=== PATIENT | female | born 1960 | race Caucasian/White ===

== ENCOUNTER 2021-04-10 07:30 | Emergency (ER) | payer OTHER, SELFPAY ==
[2021-04-10 08:08] VITALS: BP 160/93; PULSE 84; RESP 20; TEMP 36.6; O2SAT 100; BMI 28.3
[2021-04-10 08:25] LABS: MANUAL DIFF FLAG NO
[2021-04-10 08:26] LABS: Basophils Absolute Auto 0.1 X10*3/uL (0.0-0.2); Basophils Percent Auto 0.6 % (0-2); Eosinophils Percent Auto 0.2 % (0-4); Hematocrit 44.5 % (37.0-47.0); Hemoglobin 15.9 g/dl (12.0-16.0); Imm Gran Abs Auto 0.02 X10*3/uL (0.00-0.03); Imm Gran Pct Auto 0.2 % (0.0-0.4); Lymphocytes Absolute Auto 2.5 X10*3/uL (1.2-4.9); Lymphocytes Percent Auto 27.7 % (20-40); Mean Corpuscular HGB Conc 35.7 g/dl (31.0-35.0); Mean Corpuscular Hemoglobin 31.9 pg (27.0-33.0); Mean Corpuscular Volume 89.2 fL (80.0-98.0); Mean Platelet Volume 9.5 fL (9.4-12.3); Monocytes Absolute Auto 0.5 X10*3/uL (0.1-1.2); Monocytes Percent Auto 5.9 % (2-11); Neutrophils Absolute Auto 5.9 x10*3/uL (2.0-8.3); Neutrophils Percent Auto 65.4 % (45-73); Platelet Count 332 X10*3/uL (160-400); Red Blood Count 4.99 X10*6/uL (4.20-5.50)
[2021-04-10] MEDS: ondansetron HCL 4 MG/2 ML VIAL IVPUSH (08:28)
[2021-04-10 08:58] LABS: Alanine Aminotransferase 26 U/L (0-31); Albumin Level 5.1 g/dL (3.5-5.0); Alkaline Phosphatase 46 U/L (39-117); Anion Gap 17 (12-20); Aspartate Amino Transferase 16 U/L (5-31); Bilirubin Total 0.7 mg/dL (0.0-1.0); Blood Urea Nitrogen 15 mg/dL (9-16); Carbon Dioxide 24 mmol/L (22-29); Chloride 105 mmol/L (96-108); Creatinine Clr Calc Pharmacy 71.3; Estimated Glomerular Filt Rate > 60; Glucose Random 116 mg/dL (60-115); Potassium 3.5 mmol/L (3.3-5.1); Sodium 142 mmol/L (135-145); Total Protein 8.1 g/dL (6.5-8.0)
[2021-04-10 09:07] LABS: Calcium 10.9 mg/dL (8.4-10.2)
[2021-04-10] MEDS: 0.9 % Sodium Chloride 1,000 ML 999 ML IVCONT (09:18)
[2021-04-10 09:29] LABS: COVID-19 Test Negative (Negative)
--- NOTE | 2021-04-10 09:56 | ED.NAVMDI ---
HPI - Nausea/Vomiting/Diarrhea General Chief complaint: Nausea/Vomiting/Diarrhea Stated complaint: dehydration Time Seen by Provider: 04/10/21 08:50 History of Present Illness HPI Narrative: Patient complains of nausea and vomiting last night last episode of vomiting was this morning but she still feels mildly nauseous and she has had some watery stools last night, no abdominal pain no dizziness no headache no neck pain no chest pain She also feels pressure and mild pain in her right ear Related Data Allergies Allergy/AdvReac Type Severity Reaction Status Date / Time amoxicillin [AMOXICILLIN] Allergy Unknown RASH Verified 04/10/21 08:05 penicillin V Allergy Unknown Rash Verified 04/10/21 08:05 Penicillins [PENICILLINS] Allergy Unknown RASH Verified 04/10/21 08:05 pravastatin Allergy Unknown Rash Verified 04/10/21 08:05 Sulfa (Sulfonamide Allergy Unknown RASH Verified 04/10/21 08:05 Antibiotics) [SULFA(SULFONAMIDE ANTIBIOTICS)] Penicillin Allergy Unknown hives Uncoded 04/10/21 08:05 Sulfa Allergy Unknown hives Uncoded 04/10/21 08:05 Review of Systems Review of Systems: Positive for nausea vomiting diarrhea and right ear discomfort Negatives are no fever no chills no dizziness no weakness no fainting no feeling faint no headache no neck pain no stiff neck no sore throat no cough no sputum no shortness of breath no chest pain no abdominal pain no dysuria no skin rash no numbness or weakness Yes all other systems are reviewed and are negative [facility] Past Medical History Source: nursing notes reviewed Social History Social History Advance Directives: No Advance Directives Information Provided: No Patient : No Physical Exam Vital Signs: Vital Signs: Last Vital Signs Temp 97.8 F 04/10/21 08:08 Pulse 84 04/10/21 08:08 Resp 20 04/10/21 08:08 BP 160/93 H 04/10/21 08:08 Pulse Ox 100 04/10/21 08:08 BMI result Body Mass Index 28.3 General appearance no acute distress The ears are clear with no redness, tympanic membranes were normal no canal narrowing The eyes no redness or discharge The throat is clear with no redness swelling or exudate, mucous membranes are mildly dry and lips are mildly dry Chest is clear to auscultation bilateral Heart no murmur Abdomen soft nontender Extremities no edema Skin no rash Neuro patient's A&O x3, it interaction both comprehension and expression are normal and gait and balance are normal Course Course Course Narrative: After Zofran patient felt better and was tolerating p.o. without nausea Labs showed calcium 10.9 and albumin 5.1 which is likely due to dehydration, patient was hydrated with a L of fluids and on discharge felt very improved and was well-appearing MDM - Nausea/Vomiting/Diarrhea Lab Data Attestation: I reviewed the patient's lab results. Result diagrams: 04/10/21 08:21 04/10/21 08:21 Labs: Lab Results 04/10/21 04/10/21 04/10/21 Range/Units 08:21 08:21 08:57 WBC 9.0 (4.8-10.8) X10*3/uL RBC 4.99 (4.20-5.50) X10*6/uL Hgb 15.9 (12.0-16.0) g/dl Hct 44.5 (37.0-47.0) % MCV 89.2 (80.0-98.0) fL MCH 31.9 (27.0-33.0) pg MCHC 35.7 H (31.0-35.0) g/dl RDW 12.0 (11.0-16.0) % Plt Count 332 (160-400) X10*3/uL MPV 9.5 (9.4-12.3) fL Immature Gran % (Auto) 0.2 (0.0-0.4) % Neut % (Auto) 65.4 (45-73) % Lymph % (Auto) 27.7 (20-40) % [place] % (Auto) 5.9 (2-11) % Eos % (Auto) 0.2 (0-4) % Baso % (Auto) 0.6 (0-2) % Lymph # (Auto) 2.5 (1.2-4.9) X10*3/uL [place] # (Auto) 0.5 (0.1-1.2) X10*3/uL Eos # (Auto) 0.0 (0.0-0.4) X10*3/uL Baso # (Auto) 0.1 (0.0-0.2) X10*3/uL Abs Immat Gran (auto) 0.02 (0.00-0.03) X10*3/uL Absolute Neuts (auto) 5.9 (2.0-8.3) x10*3/uL Absolute Nucleated RBC 0.000 (0.0-0.012) X10*3/uL Nucleated RBC % (auto) 0.0 (0.0-0.2) /100WBC Sodium 142 (135-145) mmol/L Potassium 3.5 (3.3-5.1) mmol/L Chloride 105 (96-108) mmol/L Carbon Dioxide 24 (22-29) mmol/L Anion Gap 17 (12-20) BUN 15 (9-16) mg/dL Creatinine 0.82 (0.5-1.4) mg/dL Estim Creat Clear Calc 71.3 Estimated GFR > 60 Random Glucose 116 H (60-115) mg/dL Calcium 10.9 H (8.4-10.2) mg/dL Total Bilirubin 0.7 (0.0-1.0) mg/dL AST 16 (5-31) U/L ALT 26 (0-31) U/L Alkaline Phosphatase 46 (39-117) U/L Total Protein 8.1 H (6.5-8.0) g/dL Albumin 5.1 H (3.5-5.0) g/dL COVID-19 (BEN) Negative (Negative) COVID-19 Clin Com See Note Discharge Plan Discharge Clinical Impression: Gastroenteritis, Dehydration Patient Disposition: Home, Self-Care Additional Instructions: Your mildly dehydrated in the ER, but responded well to the nausea medicine and now your drinking fluids and look for improved Use Zofran as needed if you experience nausea Return to the ER any time for uncontrolled vomiting, dehydration, pain, any worse condition or any concerns COVID test was negative
== END 2021-04-10 10:59 | disposition home or self-care (01) ==
PROVIDERS: Physician Assistant Medical; Emergency Provider Emergency Medicine Emergency Medical Services
DX: K52.9 Noninfective gastroenteritis and colitis, unspecified (principal); E86.0 Dehydration; Z20.822 Contact with and (suspected) exposure to COVID-19
CPT/HCPCS: 36415; 80053; 85025; 87635; 96361; 96374; 99283; 99284; J2405

== ENCOUNTER 2021-08-21 08:53 | Emergency (ER) | payer OTHER, SELFPAY ==
[2021-08-21 09:04] VITALS: BP 152/89; PULSE 86; RESP 16; TEMP 36.5; O2SAT 97; BMI 28.3
--- NOTE | 2021-08-21 09:30 | PC.NURSE ---
pt a&ox3, vss, pt denies pain at this time. diarrhea for 3 days, resolved today, pt started vomiting after taking vitamins with orange juice this am. sore throat and congestion this am. pt has hx of allergies, and has been staying with her daughter and her cat. pt took zofran this morning with no effect. provider in room.
--- NOTE | 2021-08-21 09:36 | ED.NAVMDI ---
HPI - Nausea/Vomiting/Diarrhea General Chief complaint: Nausea/Vomiting/Diarrhea Stated complaint: nausea/vomiting/congestion Time Seen by Provider: 08/21/21 09:17 Source: patient Mode of arrival: ambulatory Limitations: no limitations History of Present Illness HPI Narrative: 61-year-old female with a history of high cholesterol here with reports of vomiting and diarrhea since yesterday. Patient tells me she traveled on from [place]. She did fly in a plane and did not wear a mask. She denies any associated abdominal pain, fevers, urinary symptoms. Patient tells me that she did take 4 mg of Zofran approximately 2 hours ago and was still having nausea and vomiting which prompted her to come into the ER for further evaluation. Patient tells me her last bowel movement was 05:00 this morning. Her stools have been watery and green per patient. She received moderna vaccine x3 Associated nausea: Yes Related Data Previous Rx's Medication Instructions Recorded cetirizine 10 mg capsule 10 mg PO DAILY PRN #30 cap 04/10/21 ondansetron HCl 4 mg tablet 4 mg PO Q6H PRN #10 tab 04/10/21 (Zofran) ondansetron 4 mg disintegrating 4 mg PO Q6H PRN #10 tab 08/21/21 tablet Allergies Allergy/AdvReac Type Severity Reaction Status Date / Time amoxicillin [AMOXICILLIN] Allergy Unknown RASH Verified 04/10/21 08:05 penicillin V Allergy Unknown Rash Verified 04/10/21 08:05 Penicillins [PENICILLINS] Allergy Unknown RASH Verified 04/10/21 08:05 pravastatin Allergy Unknown Rash Verified 04/10/21 08:05 Sulfa (Sulfonamide Allergy Unknown RASH Verified 04/10/21 08:05 Antibiotics) [SULFA(SULFONAMIDE ANTIBIOTICS)] Penicillin Allergy Unknown hives Uncoded 04/10/21 08:05 Sulfa Allergy Unknown hives Uncoded 04/10/21 08:05 Review of Systems Review of Systems: Yes all other systems are reviewed and are negative Constitutional: Constitutional: Reports no additional constitutional complaints, Denies body ache(s), Denies chills, Denies fever(s), Denies headache(s) and Denies weakness Eyes: Eyes: Reports no additional eye complaints and Denies change in vision ENT: Reports system reviewed and no additional complaints, except as documented, Denies dizziness, Denies headache(s), Denies nasal congestion, Denies nasal discharge and Denies neck pain Cardiovascular: Cardiovascular: Reports no additional cardiovascular complaints, Denies chest pain, Denies leg edema and Denies dyspnea Respiratory: Respiratory: Reports no additional respiratory complaints, Denies cough and Denies dyspnea Gastrointestinal: Gastrointestinal: Reports no additional gastrointestinal complaints, Reports abdominal pain, Denies diarrhea, Reports nausea and Reports vomiting Genitourinary: Genitourinary: Reports no additional female genitourinary complaints and Denies urinary incontinence Musculoskeletal: Musculoskeletal: Reports no additional musculoskeletal complaints, Denies back pain, Denies arthralgias, Denies joint swelling, Denies neck pain, Denies numbness and Denies tingling Integumentary/Breasts: Skin/Breast: Reports system reviewed and no additional complaints, except as docu and Denies rash Neurologic: Reports system reviewed and no additional complaints, except as documented, Denies Abnormal speech present, Denies dizziness, Denies headache(s), Denies numbness, Denies tingling and Denies weakness PMF Past Medical History Attestation statement: The following information was validated with the patient. Source: old records reviewed and nursing notes reviewed Medical History Hyperlipidemia Social History Social History Alcohol intake: current Alcohol intake frequency: holidays/special occasions only Alcohol type: hard liquor Patient Tobacco Use Status: Never used Tobacco Use of substances other than those prescribed or required for medical reasons: No Advance Directives: No Physical Exam Vital Signs: Vital Signs: Last Vital Signs Temp 97.7 F 08/21/21 09:04 Pulse 86 08/21/21 09:04 Resp 16 08/21/21 09:04 BP 152/89 H 08/21/21 09:04 Pulse Ox 97 08/21/21 09:04 BMI result Body Mass Index 28.3 Const: General: cooperative, healthy appearing, comfortable and no acute distress Orientation/consciousness: patient oriented x3 Limitations: no limitations HEENT: Head: Yes normal to inspection Ears: hearing grossly normal bilaterally General nose exam: Normal external nose present Face and sinus: Yes normal facial exam Mouth: Normal oral and palatal mucosa present Throat: Yes posterior oropharynx normal Eyes: General: appearance normal, both eyes and all related structures Pupils: Equal, round and reactive pupils present Neck: Neck: Yes normal visual inspection Chest: Chest palpation & inspection: normal inspection of the chest Resp: Effort & Inspection: normal respiratory effort Auscultation: clear to auscultation bilaterally Cardio: Rate: regular rate Rhythm: regular rhythm Peripheral pulses: Peripheral pulses 2+ throughout GI: Inspection: Yes normal to inspection Palpation (GI): Soft to palpation and nontender Auscultation: normal bowel sounds Back/Spine/Pelvis: Thoracic/Lumbar Spine: thoracic and lumbar spine normal to inspection Skin: General skin exam: no rashes or lesions noted Neuro: General: patient oriented x3, no focal motor deficits and normal sensation to monofilament Cranial nerves: Yes Equal, round and reactive pupils present Cognition (Neuro): normal cognition Speech: No Abnormal speech present Gait exam (Neuro): Normal gait present Motor exam (neuro): 5/5 motor strength present throughout Extrem: General: Yes normal to inspection Course Course Course Narrative: 61 yo female with a history of HLD here with complaints of vomiting/diarrhea since yesterday. No focal AP. Took zofran at home with continued vomiting. Will check labs, COVID/FLU testing. Will give antiemetic, NSB Reevaluation(s) Reevaluation #1: Patient feels improved. Tolerating emiliano nayely with no additional vomiting episodes. Likely viral gastroenteritis. Repeat abdominal exam was unchanged. Low concern for acute appendicitis or diverticulitis with no focal abdominal pain on exam. Plan for discharge home. Reviewed worrisome signs and symptoms of when to return to the emergency department. Comfortable discharge home. Time: 11:30 MDM - Nausea/Vomiting/Diarrhea MDM Narrative Medical decision making narrative: Gastroenteritis Medical Records Attestation: I reviewed the patient's medical records. Lab Data Attestation: I reviewed the patient's lab results. Result diagrams: 08/21/21 09:45 08/21/21 09:45 Labs: Lab Results 08/21/21 08/21/21 08/21/21 Range/Units 09:41 09:41 09:45 WBC 7.5 (4.8-10.8) X10*3/uL RBC 4.58 (4.20-5.50) X10*6/uL Hgb 14.2 (12.0-16.0) g/dl Hct 41.8 (37.0-47.0) % MCV 91.3 (80.0-98.0) fL MCH 31.0 (27.0-33.0) pg MCHC 34.0 (31.0-35.0) g/dl RDW 12.1 (11.0-16.0) % Plt Count 259 (160-400) X10*3/uL MPV 10.0 (9.4-12.3) fL Immature Gran % (Auto) 0.4 (0.0-0.4) % Neut % (Auto) 74.2 H (45-73) % Lymph % (Auto) 19.2 L (20-40) % [place] % (Auto) 5.4 (2-11) % Eos % (Auto) 0.5 (0-4) % Baso % (Auto) 0.3 (0-2) % Lymph # (Auto) 1.5 (1.2-4.9) X10*3/uL [place] # (Auto) 0.4 (0.1-1.2) X10*3/uL Eos # (Auto) 0.0 (0.0-0.4) X10*3/uL Baso # (Auto) 0.0 (0.0-0.2) X10*3/uL Abs Immat Gran (auto) 0.03 (0.00-0.03) X10*3/uL Absolute Neuts (auto) 5.6 (2.0-8.3) x10*3/uL Absolute Nucleated RBC 0.000 (0.0-0.012) X10*3/uL Nucleated RBC % (auto) 0.0 (0.0-0.2) /100WBC Sodium (135-145) mmol/L Potassium (3.3-5.1) mmol/L Chloride (96-108) mmol/L Carbon Dioxide (22-29) mmol/L Anion Gap (12-20) BUN (9-16) mg/dL Creatinine (0.5-1.4) mg/dL Estim Creat Clear Calc Estimated GFR Random Glucose (60-115) mg/dL Calcium (8.4-10.2) mg/dL Total Bilirubin (0.0-1.0) mg/dL Direct Bilirubin (0.0-0.5) mg/dL AST (5-31) U/L ALT (0-31) U/L Alkaline Phosphatase (39-117) U/L Total Protein (6.5-8.0) g/dL Albumin (3.5-5.0) g/dL COVID-19 (BEN) Negative (Negative) COVID-19 Clin Com See Note Influenza Type A (LUPE) Negative (Negative) Influenza Type B (LUPE) Negative (Negative) Influenza A & B Note See Note 08/21/21 Range/Units 09:45 WBC (4.8-10.8) X10*3/uL RBC (4.20-5.50) X10*6/uL Hgb (12.0-16.0) g/dl Hct (37.0-47.0) % MCV (80.0-98.0) fL MCH (27.0-33.0) pg MCHC (31.0-35.0) g/dl RDW (11.0-16.0) % Plt Count (160-400) X10*3/uL MPV (9.4-12.3) fL Immature Gran % (Auto) (0.0-0.4) % Neut % (Auto) (45-73) % Lymph % (Auto) (20-40) % [place] % (Auto) (2-11) % Eos % (Auto) (0-4) % Baso % (Auto) (0-2) % Lymph # (Auto) (1.2-4.9) X10*3/uL [place] # (Auto) (0.1-1.2) X10*3/uL Eos # (Auto) (0.0-0.4) X10*3/uL Baso # (Auto) (0.0-0.2) X10*3/uL Abs Immat Gran (auto) (0.00-0.03) X10*3/uL Absolute Neuts (auto) (2.0-8.3) x10*3/uL Absolute Nucleated RBC (0.0-0.012) X10*3/uL Nucleated RBC % (auto) (0.0-0.2) /100WBC Sodium 141 (135-145) mmol/L Potassium 3.7 (3.3-5.1) mmol/L Chloride 106 (96-108) mmol/L Carbon Dioxide 25 (22-29) mmol/L Anion Gap 14 (12-20) BUN 13 (9-16) mg/dL Creatinine 0.67 (0.5-1.4) mg/dL Estim Creat Clear Calc 86.3 Estimated GFR > 60 Random Glucose 112 (60-115) mg/dL Calcium 9.5 D (8.4-10.2) mg/dL Total Bilirubin 0.6 (0.0-1.0) mg/dL Direct Bilirubin 0.2 (0.0-0.5) mg/dL AST 15 (5-31) U/L ALT 26 (0-31) U/L Alkaline Phosphatase 43 (39-117) U/L Total Protein 6.8 (6.5-8.0) g/dL Albumin 4.4 (3.5-5.0) g/dL COVID-19 (BEN) (Negative) COVID-19 Clin Com Influenza Type A (LUPE) (Negative) Influenza Type B (LUPE) (Negative) Influenza A & B Note Discharge Plan Discharge Clinical Impression: Gastroenteritis Patient Disposition: Home, Self-Care Instructions: Gastroenteritis (DC) Additional Instructions: Your testing for COVID and flu are negative Increase fluids, rest Advanced diet as tolerated Prescriptions: New ondansetron 4 mg tablet,disintegrating 4 mg PO Q6H PRN (Reason: nausea and vomiting) Qty: 10 0RF No Action ondansetron HCl [Zofran] 4 mg tablet 4 mg PO Q6H PRN (Reason: nausea and vomiting) Qty: 10 0RF cetirizine 10 mg capsule 10 mg PO DAILY PRN (Reason: allergy symptoms) Qty: 30 0RF Referrals: Amie Rodriguez PA-C [Primary Care Provider] - Interventions: ED Discharge Assessment Last Done: 08/21/21 11:31 Discharge Date/Time: 08/21/21 11:32
[2021-08-21] MEDS: 0.9 % Sodium Chloride 1,000 ML 999 ML IV (09:48)
[2021-08-21] MEDS: ondansetron HCL 4 MG/2 ML VIAL IVPUSH (09:48)
[2021-08-21 09:51] LABS: MANUAL DIFF FLAG NO
[2021-08-21 09:57] LABS: Basophils Percent Auto 0.3 % (0-2); Eosinophils Percent Auto 0.5 % (0-4); Hematocrit 41.8 % (37.0-47.0); Hemoglobin 14.2 g/dl (12.0-16.0); Imm Gran Abs Auto 0.03 X10*3/uL (0.00-0.03); Imm Gran Pct Auto 0.4 % (0.0-0.4); Lymphocytes Absolute Auto 1.5 X10*3/uL (1.2-4.9); Lymphocytes Percent Auto 19.2 % (20-40); Mean Corpuscular Volume 91.3 fL (80.0-98.0); Monocytes Absolute Auto 0.4 X10*3/uL (0.1-1.2); Monocytes Percent Auto 5.4 % (2-11); Neutrophils Absolute Auto 5.6 x10*3/uL (2.0-8.3); Neutrophils Percent Auto 74.2 % (45-73); Platelet Count 259 X10*3/uL (160-400); Red Blood Count 4.58 X10*6/uL (4.20-5.50); Red Cell Distribution Width 12.1 % (11.0-16.0); White Blood Count 7.5 X10*3/uL (4.8-10.8)
[2021-08-21 10:06] LABS: Influenza A Negative (Negative)
[2021-08-21 10:07] LABS: Influenza B2 Negative (Negative)
[2021-08-21 10:12] LABS: Alanine Aminotransferase 26 U/L (0-31); Albumin Level 4.4 g/dL (3.5-5.0); Alkaline Phosphatase 43 U/L (39-117); Anion Gap 14 (12-20); Aspartate Amino Transferase 15 U/L (5-31); Bilirubin Direct 0.2 mg/dL (0.0-0.5); Bilirubin Total 0.6 mg/dL (0.0-1.0); Blood Urea Nitrogen 13 mg/dL (9-16); Calcium 9.5 mg/dL (8.4-10.2); Carbon Dioxide 25 mmol/L (22-29); Chloride 106 mmol/L (96-108); Creatinine Clr Calc Pharmacy 86.3; Estimated Glomerular Filt Rate > 60; Glucose Random 112 mg/dL (60-115); Potassium 3.7 mmol/L (3.3-5.1); Sodium 141 mmol/L (135-145); Total Protein 6.8 g/dL (6.5-8.0)
[2021-08-21 10:13] LABS: COVID-19 Test Negative (Negative)
== END 2021-08-21 11:32 | disposition home or self-care (01) ==
PROVIDERS: Nurse Practitioner Family; Emergency Provider Emergency Medicine Emergency Medical Services; PCP Physician Assistant Medical
DX: K52.9 Noninfective gastroenteritis and colitis, unspecified (principal); Z20.822 Contact with and (suspected) exposure to COVID-19
CPT/HCPCS: 80048; 80076; 85025; 87502; 87635; 96361; 96374; 99284; J2405

== ENCOUNTER 2022-01-29 06:41 | Emergency (ER) | payer OTHER, SELFPAY ==
--- NOTE | ~2022-01-29 | CT_ITS ---
EXAMINATION: CT HEAD WITHOUT CONTRAST CLINICAL INFORMATION: Headache. COMPARISON: None TECHNIQUE: Contiguous axial imaging was performed from the skull base to vertex without intravenous administration of contrast. This CT examination was performed using dose optimization techniques as appropriate, variously including the following: *Automated exposure control *Adjustment of mA and/or kV according to patient size (this includes techniques or standardized protocols for targeted exams where dose is matched to indication/reason for exam; i.e. extremities or head) *Use of iterative reconstruction technique DLP: 674 mGy-cm FINDINGS: There is no acute intra-axial, extra-axial bleed, masses or midline shift. There is no acute infarction in evolution. The ernts to white matter differentiation is maintained normal. The lateral ventricles are symmetrical in size and configuration without enlargement. Bone windows reveal no calvarial abnormality. Bilateral paranasal sinuses and mastoid air cells are well-aerated. There is no scalp soft tissue abnormality. CT/CT head/brain wo IV con IMPRESSION: No acute intracranial process seen.
[2022-01-29 06:56] VITALS: BP 185/92; PULSE 98; RESP 20; TEMP 36.2; O2SAT 96; BMI 29.2
[2022-01-29 07:18] LABS: MANUAL DIFF FLAG NO
[2022-01-29 07:23] LABS: Basophils Absolute Auto 0.1 X10*3/uL (0.0-0.2); Eosinophils Absolute Auto 0.1 X10*3/uL (0.0-0.4); Hemoglobin 14.7 g/dl (12.0-16.0); Imm Gran Abs Auto 0.03 X10*3/uL (0.00-0.03); Imm Gran Pct Auto 0.6 % (0.0-0.4); Lymphocytes Absolute Auto 2.3 X10*3/uL (1.2-4.9); Lymphocytes Percent Auto 43.8 % (20-40); Mean Corpuscular Volume 91.5 fL (80.0-98.0); Mean Platelet Volume 9.4 fL (9.4-12.3); Monocytes Absolute Auto 0.3 X10*3/uL (0.1-1.2); Neutrophils Absolute Auto 2.5 x10*3/uL (2.0-8.3); Neutrophils Percent Auto 47.6 % (45-73); Platelet Count 293 X10*3/uL (160-400); Red Blood Count 4.59 X10*6/uL (4.20-5.50); Red Cell Distribution Width 12.1 % (11.0-16.0); White Blood Count 5.2 X10*3/uL (4.8-10.8)
[2022-01-29 07:35] LABS: Anion Gap 17 (12-20); Blood Urea Nitrogen 14 mg/dL (9-16); Calcium 9.6 mg/dL (8.4-10.2); Carbon Dioxide 25 mmol/L (22-29); Chloride 105 mmol/L (96-108); Creatinine Clr Calc Pharmacy 80.3; Estimated Glomerular Filt Rate > 60; Glucose Random 113 mg/dL (60-115); Potassium 3.7 mmol/L (3.3-5.1); Sodium 143 mmol/L (135-145)
[2022-01-29 07:37] LABS: COVID-19 Test Negative (Negative); IDNOW Serial# 16C4AD1C
--- NOTE | 2022-01-29 07:40 | PC.NURSE ---
Dr. Horton aware of patients blood pressure
--- NOTE | 2022-01-29 07:45 | ED.GENADULT ---
HPI - General Adult General Chief complaint: General Medical Stated complaint: headache earpain nose running Time Seen by Provider: 01/29/22 07:34 Source: patient Mode of arrival: ambulatory Limitations: no limitations History of Present Illness HPI narrative: 61-year-old female came in for evaluation of headache, runny nose, right ear pain. Patient flew from [facility] yesterday had a rough flight with right facial pressure and right ear pain, symptoms progressed to nausea and vomiting and more pain to the right ear with more runny nose this morning, patient also been having headache that this started as 10/10 now it is 3/10, no neck stiffness or neck pain, no syncope. Patient found to be hypertensive in the emergency department patient had no history of high blood pressure thinking it could be related to pain and being anxious. No CP, no SOB, no abdominal pain. Related Data Previous Rx's Medication Instructions Recorded cetirizine 10 mg capsule 10 mg PO DAILY PRN allergy 04/10/21 symptoms #30 caps ondansetron HCl 4 mg tablet 4 mg PO Q6H PRN nausea and 04/10/21 (Zofran) vomiting #10 tabs ondansetron 4 mg disintegrating 4 mg PO Q6H PRN nausea and 08/21/21 tablet vomiting #10 tabs azithromycin 250 mg tablet See Rx Instructions PO .COMPLEX #6 01/29/22 (Zithromax Z-Abelardo) tabs Allergies Allergy/AdvReac Type Severity Reaction Status Date / Time amoxicillin [AMOXICILLIN] Allergy Unknown RASH Verified 04/10/21 08:05 penicillin V Allergy Unknown Rash Verified 04/10/21 08:05 Penicillins [PENICILLINS] Allergy Unknown RASH Verified 04/10/21 08:05 pravastatin Allergy Unknown Rash Verified 04/10/21 08:05 Sulfa (Sulfonamide Allergy Unknown RASH Verified 04/10/21 08:05 Antibiotics) [SULFA(SULFONAMIDE ANTIBIOTICS)] azithromycin Allergy Stomach Verified 01/29/22 07:00 Upset Penicillin Allergy Unknown hives Uncoded 04/10/21 08:05 Sulfa Allergy Unknown hives Uncoded 04/10/21 08:05 Review of Systems Review of Systems: All other systems are reviewed and are negative Constitutional: Reports as per HPI and Reports no additional constitutional complaints Eyes: Reports as per HPI and Reports no additional eye complaints Reports system reviewed and no additional complaints, except as documented Cardiovascular: Reports as per HPI and Reports no additional cardiovascular complaints Respiratory: Reports as per HPI and Reports no additional respiratory complaints Gastrointestinal: Reports as per HPI and Reports no additional gastrointestinal complaints Genitourinary: Reports no additional female genitourinary complaints Musculoskeletal: Reports no additional musculoskeletal complaints Skin/Breast: Reports system reviewed and no additional complaints, except as docu Psychiatric: Reports no additional psychiatric complaints Endocrine: Reports no additional endocrine complaints Hematologic/Lymphatic: Reports no additional hematologic/lymphatic complaints Allergic/Immunologic: Reports no additional allergic/immunologic complaints Reports system reviewed and no additional complaints, except as documented and Reports Abnormal speech present [facility] Past Medical History Medical History Hyperlipidemia Social History Social History Alcohol intake: current Alcohol intake frequency: holidays/special occasions only Alcohol type: hard liquor Patient Tobacco Use Status: Never used Tobacco Use of substances other than those prescribed or required for medical reasons: No Advance Directives: Yes Advance Directives Information Provided: Yes Advance Directives on File: No Patient : No Physical Exam ED Vital Signs: Vital Signs - 24 hr 01/29/22 06:56 01/29/22 08:15 Temperature 97.2 F 97.9 F Pulse Rate 98 74 Respiratory Rate 20 15 Blood Pressure 185/92 H 150/90 H Pulse Oximetry 96 97 Oxygen Delivery Method Room Air Room Air BMI result Body Mass Index 29.2 vital signs have been reviewed as appeared to be correct. Blood pressure normal. Heart rate normal. Respiration rate normal. Temperature normal. Oxygen saturation normal. Appearance: Alert. Oriented X3. No acute distress. Head: Normal external exam. Normocephalic. Atraumatic. No Berg signs noted. No raccoon eyes noted Eyes: PERRLA. EOMI. Conjunctiva and sclera normal. Eyelids normal. ENT: TM's Normal. Pharynx normal. Uvula midline. Moist mucous membranes. No trismus noted. No drooling noted. No muffled voice noted. increases tenderness to percussion to the right frontal sinus and right maxillary sinus. Neck: Normal inspection. Neck supple. FROM. No adenopathy. Thyroid Normal. No meningeal signs. No neck mass noted. CVS: Normal heart rate and rhythm. Heart sound normal. No murmurs noted. Pulses normal throughout. Respiratory: No respiratory distress. Painless inspiration. Breath sounds normal. No wheezes/rales/rhonchi noted. Chest nontender. No accessory muscle usage noted or decreased air movement noted. Abdomen: Soft and nontender. Bowel sounds normal in all 4 quadrants. No distention noted. No organomegaly noted. No visible injury noted. Back: No CVA tenderness. Full range of motion noted. Skin: Skin warm and dry. Normal skin color. Normal skin turgor. No rashes/lesions/lacerations noted. Extremities: No lower extremity edema. Extremities exhibit normal range of motion. Extremities nontender. Neuro: Oriented X 3. Cranial nerve exam: II-XII are grossly intact No motor deficit. No sensory deficit. Reflexes normal. Course Course Course Narrative: 61-year-old female came in for evaluation of headache, runny nose, facial pressure, and a right ear pain. Physical exam is revealing acute sinusitis, patient has taken a Z-Abelardo in the past with a mild GI upset but patient is willing to take another course of Z-Abelardo patient was instructed to take it after food and drink plenty of water with It. Medical Decision Making Lab Data Lab results reviewed: Yes I reviewed the patient's lab results. Result diagrams: 01/29/22 07:13 01/29/22 07:13 Labs: Lab Results 01/29/22 01/29/22 01/29/22 Range/Units 07:13 07:13 07:13 WBC 5.2 (4.8-10.8) X10*3/uL RBC 4.59 (4.20-5.50) X10*6/uL Hgb 14.7 (12.0-16.0) g/dl Hct 42.0 (37.0-47.0) % MCV 91.5 (80.0-98.0) fL MCH 32.0 (27.0-33.0) pg MCHC 35.0 (31.0-35.0) g/dl RDW 12.1 (11.0-16.0) % Plt Count 293 (160-400) X10*3/uL MPV 9.4 (9.4-12.3) fL Immature Gran % (Auto) 0.6 H (0.0-0.4) % Neut % (Auto) 47.6 (45-73) % Lymph % (Auto) 43.8 H (20-40) % [place] % (Auto) 6.0 (2-11) % Eos % (Auto) 1.0 (0-4) % Baso % (Auto) 1.0 (0-2) % Lymph # (Auto) 2.3 (1.2-4.9) X10*3/uL [place] # (Auto) 0.3 (0.1-1.2) X10*3/uL Eos # (Auto) 0.1 (0.0-0.4) X10*3/uL Baso # (Auto) 0.1 (0.0-0.2) X10*3/uL Abs Immat Gran (auto) 0.03 (0.00-0.03) X10*3/uL Absolute Neuts (auto) 2.5 (2.0-8.3) x10*3/uL Absolute Nucleated RBC 0.000 (0.0-0.012) X10*3/uL Nucleated RBC % (auto) 0.0 (0.0-0.2) /100WBC Sodium 143 (135-145) mmol/L Potassium 3.7 (3.3-5.1) mmol/L Chloride 105 (96-108) mmol/L Carbon Dioxide 25 (22-29) mmol/L Anion Gap 17 (12-20) BUN 14 (9-16) mg/dL Creatinine 0.73 (0.5-1.4) mg/dL Estim Creat Clear Calc 80.3 Estimated GFR > 60 Random Glucose 113 (60-115) mg/dL Calcium 9.6 (8.4-10.2) mg/dL COVID-19 (BEN) Negative (Negative) COVID-19 Clin Com See Note Imaging Data Head CT: Attestation: I personally reviewed and interpreted this imaging study as follows: Radiologist's impression: no acute intracranial process seen. Discharge Plan Discharge Clinical Impression: Sinusitis Patient Disposition: Home, Self-Care Instructions: Sinusitis (ED) Prescriptions: New azithromycin [Zithromax Z-Abelardo] 250 mg tablet See Rx Instructions .ROUTE .COMPLEX Qty: 6 0RF Rx Instructions: For 250 mg dose pack: take 500 mg today (day 1), then 250 mg for 4 days (days 2-5) No Action ondansetron HCl [Zofran] 4 mg tablet 4 mg PO Q6H PRN (Reason: nausea and vomiting) Qty: 10 0RF cetirizine 10 mg capsule 10 mg PO DAILY PRN (Reason: allergy symptoms) Qty: 30 0RF ondansetron 4 mg tablet,disintegrating 4 mg PO Q6H PRN (Reason: nausea and vomiting) Qty: 10 0RF Referrals: Physician,Nonstaff [Primary Care Provider] -
[2022-01-29] MEDS: ondansetron HCL 4 MG/2 ML VIAL IVPUSH (08:02)
[2022-01-29] MEDS: Acetaminophen 325 MG TABLET 650 MG PO (08:02)
[2022-01-29] MEDS: 0.9 % Sodium Chloride 1,000 ML 999 ML IV (08:02)
[2022-01-29 08:15] VITALS: BP 150/90; PULSE 74; RESP 15; TEMP 36.6; O2SAT 97
== END 2022-01-29 09:34 | disposition home or self-care (01) ==
PROVIDERS: Emergency Provider Emergency Medicine
DX: J32.8 Other chronic sinusitis (principal); Z20.822 Contact with and (suspected) exposure to COVID-19; R03.0 Elevated blood-pressure reading, without diagnosis of hypertension; E78.5 Hyperlipidemia, unspecified
CPT/HCPCS: 70450; 80048; 85025; 87635; 96374; 99284; J2405

== ENCOUNTER 2022-01-30 07:38 | Emergency (ER) | payer OTHER, SELFPAY ==
[2022-01-30 07:53] VITALS: BP 166/97; PULSE 99; RESP 16; TEMP 36.6; O2SAT 96; BMI 29.2
--- NOTE | 2022-01-30 08:17 | ED_ITS ---
HPI - General Adult General Chief complaint: General Medical Stated complaint: returning from yesterday, still not feeling well Time Seen by Provider: 01/30/22 08:04 Source: patient Mode of arrival: ambulatory History of Present Illness HPI narrative: 61-year-old female with a past medical history of hyperlipidemia presenting to the ED complaining of rhinorrhea, congestion, headache, ear pain, sore throat, nausea, and diarrhea x couple days. Patient was seen and treated in our ED yesterday for similar symptoms, diagnosed with sinusitis prescribed Z-abelardo which patient has not picked up yet. Patient admits recently flew in from [facility] she was exposed to influenza prior to her departure. Reports decreased p.o. intake secondary to nausea, was able to tolerate chicken yesterday. Denies recent antibiotics, suspicious food intake, fever, cough, chest pain/shortness of breath, abdominal pain, pedal edema Onset (ago): day(s) Related Data Previous Rx's Medication Instructions Recorded cetirizine 10 mg capsule 10 mg PO DAILY PRN allergy 04/10/21 symptoms #30 caps ondansetron HCl 4 mg tablet 4 mg PO Q6H PRN nausea and 04/10/21 (Zofran) vomiting #10 tabs ondansetron 4 mg disintegrating 4 mg PO Q6H PRN nausea and 08/21/21 tablet vomiting #10 tabs azithromycin 250 mg tablet See Rx Instructions PO .COMPLEX #6 01/30/22 tabs ciroglglup-jnjvedysqnxkq-nmuadltm 1 cap PO Q4-6H PRN headache #14 01/30/22 50 mg-300 mg-40 mg capsule caps (Fioricet) fluticasone propionate 50 2 spray intranasal DAILY #16 grams 01/30/22 mcg/actuation nasal spray,suspension (Flonase Allergy Relief) ondansetron 4 mg disintegrating 4 mg PO Q8H PRN nausea and 01/30/22 tablet vomiting #10 tabs Allergies Allergy/AdvReac Type Severity Reaction Status Date / Time amoxicillin [AMOXICILLIN] Allergy Unknown RASH Verified 04/10/21 08:05 penicillin V Allergy Unknown Rash Verified 04/10/21 08:05 Penicillins [PENICILLINS] Allergy Unknown RASH Verified 04/10/21 08:05 pravastatin Allergy Unknown Rash Verified 04/10/21 08:05 Sulfa (Sulfonamide Allergy Unknown RASH Verified 04/10/21 08:05 Antibiotics) [SULFA(SULFONAMIDE ANTIBIOTICS)] azithromycin Allergy Stomach Verified 01/29/22 07:00 Upset Penicillin Allergy Unknown hives Uncoded 04/10/21 08:05 Sulfa Allergy Unknown hives Uncoded 04/10/21 08:05 Review of Systems Review of Systems: Constitutional: No Fever, No Chills, + Fatigue, + Malaise ENT/Mouth: No Hearing loss, +Ear Pain, + Nasal Congestion, + Sinus Pain, No Hoarseness, + sore throat, + Rhinorrhea, No Swallowing Difficulty Eyes: No Eye Pain, No Swelling, No Redness, No Discharge, No Vision Changes Cardiovascular: No Chest Pain, No SOB, No Dyspnea on Exertion, No Edema, No Palpitations Respiratory: No Cough, No Sputum, No Wheezing, No Smoke Exposure, No Dyspnea Gastrointestinal: + Nausea, No Vomiting, + Diarrhea, No Constipation, No Abdominal pain Genitourinary: No Dysuria, No Urinary Frequency, No Hematuria, No Urinary Incontinence/retention, No Urgency, No Flank Pain, No Urinary Flow Changes, No Hesitancy Musculoskeletal: No joint pain, + Myalgias, No Joint Swelling Skin: No Skin Lesions, No rash Neuro: No Weakness, No Numbness, No Paresthesias, No Loss of Consciousness, No Dizziness, + Headache P Yes all other systems are reviewed and are negative Constitutional: Constitutional: Reports as per [facility] Past Medical History Attestation statement: The following information was validated with the patient. Medical History Hyperlipidemia Social History Social History Alcohol intake: never Patient Tobacco Use Status: Never used Tobacco Advance Directives: Yes Advance Directives Information Provided: Yes Advance Directives on File: No Patient : No Physical Exam ED Vital Signs: Vital Signs - 24 hr 01/30/22 07:53 Temperature 97.8 F Pulse Rate 99 Respiratory Rate 16 Blood Pressure 166/97 H Pulse Oximetry 96 Oxygen Delivery Method Room Air BMI result Body Mass Index 29.2 Const General: cooperative, healthy appearing, no acute distress, alert and awake Orientation/consciousness: patient oriented x3 Limitations: no limitations HENMT Head: Yes normal to inspection and Yes atraumatic Ears: hearing grossly normal bilaterally, external ears normal and TM's normal bilaterally General nose exam: Normal external nose present Face and sinus: Yes normal facial exam Mouth: Normal oral and palatal mucosa present Throat: Yes tonsils normal, Yes uvula midline, Yes posterior oropharynx abnormal (mild erythema, no exudates), No uvula laterally displaced and No uvular edema Eyes General: appearance normal, both eyes and all related structures EOM: EOMs intact bilaterally Neck Neck: Yes normal visual inspection, Yes no meningeal signs, Yes supple and No anterior neck swelling Resp Effort & Inspection: normal respiratory effort and no respiratory distress Auscultation: clear to auscultation bilaterally, no crackles, no rales, no r honchi and no wheezes Cardio Rate: regular rate Heart sounds: S1 normal heart sound present and S2 normal heart sound present GI Inspection: Yes normal to inspection Palpation (GI): Soft to palpation, nontender, no guarding and not rigid General: Yes no CVA tenderness Back/Spine/Pelvis Back: no CVA tenderness Skin Rashes: no rashes Wounds: no wounds Neuro General: patient oriented x3, tone normal and no meningeal signs Gait exam (Neuro): Normal gait present Extrem General: Yes normal to inspection, Yes no pedal edema and Yes no calf tenderness Course Course Course Narrative: -17--rapid strep negative. On re-evaluation patient reports nausea has improved, will p.o. challenge -1031--COVID-19/influenza/RSV negative. Results discussed with patient, reports mild symptomatic improvement. Has not received ordered medications, will receive prior to discharge -1114--patient reports symptomatic improvement. Headache resolved. Will send prescriptions to pharmacy, Z-Abelardo was sent to incorrect pharmacy, switched prescriptions. Discussed worrisome signs and symptoms and strict return precautions Medical Decision Making MDM Narrative Medical decision making narrative: 61-year-old female with a past medical history of hyperlipidemia presenting to the ED complaining of rhinorrhea, congestion, headache, ear pain, sore throat, nausea, and diarrhea x couple days. On exam vital signs stable, NAD, nontoxic appearing, exam nonfocal, abdomen soft/nontender, lungs CTA, no pedal edema. Concern for sinusitis vs viral illness vs gastroenteritis. Low suspicion for pneumonia, ACS, appendicitis/diverticulitis, PE, SAH or ICH. Labs & COVID-19 results from yesterday all WNL. Plan: COVID-19/influenza/RSV, rapid strep, p.o. antiemetics, p.o. challenge Medical Records Medical records reviewed: Yes I reviewed the patient's medical records. Lab Data Lab results reviewed: Yes I reviewed the patient's lab results. Labs: Lab Results 01/30/22 01/30/22 Range/Units 08:28 08:31 Influenza Type A (PCR) NEGATIVE (Negative) Influenza Type B (PCR) NEGATIVE (Negative) RSV RNA Qual (PCR) NEGATIVE (Negative) SARS-CoV-2 RNA (RT-PCR) NEGATIVE (Negative) S. pyogenes GrpA LUPE Negative (Negative) Discharge Plan Discharge Clinical Impression: Acute viral syndrome Patient Disposition: Home, Self-Care Instructions: Viral Syndrome (ED) Additional Instructions: You tested negative for strep throat, COVID-19, influenza, and RSV Your likely having a viral illness. Start taking previously prescribed antibiotic. Rest. Stay hydrated. Practice a bland diet, avoid spicy foods, sweets, caffeine, chocolate Zofran is antinausea medication, take as needed. Fioricet as a combination headache medication, take as needed for headaches, be aware this has Tylenol mixed in, do not exceed 4 g of Tylenol in 1 day If her symptoms persist or worsen, you develop fever, you are unable to eat or drink for constant worsening headache return to the emergency department Prescriptions: New azithromycin 250 mg tablet See Rx Instructions .ROUTE .COMPLEX Qty: 6 0RF Rx Instructions: take 500 mg today (day 1), then 250 mg for 4 days (days 2-5) ondansetron 4 mg tablet,disintegrating 4 mg PO Q8H PRN (Reason: nausea and vomiting) Qty: 10 0RF fluticasone propionate [Flonase Allergy Relief] 50 mcg/actuation spray,suspension 2 spray intranasal DAILY Qty: 16 0RF Rx Instructions: administer into each nostril vkbhrnsweu-frxvqantlzafr-eyhe [Fioricet] 50-300-40 mg capsule 1 cap PO Q4-6H PRN (Reason: headache) Qty: 14 0RF Discontinued azithromycin [Zithromax Z-Abelardo] 250 mg tablet See Rx Instructions .ROUTE .COMPLEX Qty: 6 0RF Rx Instructions: For 250 mg dose pack: take 500 mg today (day 1), then 250 mg for 4 days (days 2-5) No Action ondansetron HCl [Zofran] 4 mg tablet 4 mg PO Q6H PRN (Reason: nausea and vomiting) Qty: 10 0RF cetirizine 10 mg capsule 10 mg PO DAILY PRN (Reason: allergy symptoms) Qty: 30 0RF ondansetron 4 mg tablet,disintegrating 4 mg PO Q6H PRN (Reason: nausea and vomiting) Qty: 10 0RF Referrals: ED Physician,Generic [Emergency Provider] - 5 days
[2022-01-30 08:45] LABS: Strep A Nucleic Acid Negative (Negative)
[2022-01-30 09:27] LABS: Influenza A PCR NEGATIVE (Negative); Influenza B PCR NEGATIVE (Negative); Resp Syncy Virus RNA Qual PCR NEGATIVE (Negative); SARS COV2 PCR INHOUSE NEGATIVE (Negative)
--- NOTE | 2022-01-30 10:30 | PC.NURSE ---
patient a/o x4 . pearrla . heart rate regular at 97 beats per minute . patient lungs clear throughout . breathing equal and unlabored . skin pink warm and dry . abdomen soft . not tender . positive bowel sounds in all four quadrants . patient has been medicated as ordered by provider . patient is aware of plan of care .
[2022-01-30] MEDS: Butalb/Acetamin/Caff 50/325/40 TABLET 1 TAB PO (10:37)
[2022-01-30] MEDS: Metoclopramide HCl 10 MG TABLET PO (10:37)
[2022-01-30] MEDS: diphenhydrAMINE HCL 25 MG TABLET 12.5 MG PO (10:37)
[2022-01-30 11:33] VITALS: BP 158/85; PULSE 98; RESP 16; TEMP 36.7; O2SAT 98
--- NOTE | 2022-01-30 11:37 | PC.NURSE ---
patient a/ox4 . went over discharge instructions as ordered by provider . patient is to return to ed if symptoms worsen . patient has no questions at this time .
== END 2022-01-30 11:40 | disposition home or self-care (01) ==
PROVIDERS: Physician Assistant; Emergency Provider Emergency Medicine
DX: B34.9 Viral infection, unspecified (principal); R51.9 Headache, unspecified; J34.89 Other specified disorders of nose and nasal sinuses; Z20.822 Contact with and (suspected) exposure to COVID-19; Z79.899 Other long term (current) drug therapy
CPT/HCPCS: 0241U; 36415; 87651; 99284; Q0163

== ENCOUNTER 2022-04-02 08:11 | Emergency (ER) | payer OTHER, SELFPAY ==
--- NOTE | 2022-04-02 08:23 | ED_ITS ---
HPI - General Adult General Chief complaint: Nausea/Vomiting/Diarrhea Stated complaint: Vomiting, Headache, Congestion, Diarrhea Time Seen by Provider: 04/02/22 08:20 Source: patient and old records reviewed Mode of arrival: ambulatory Limitations: no limitations History of Present Illness HPI narrative: 61-year-old female with history of HLD presents to the ER for evaluation of vomiting, congestion, diarrhea, headaches That started this morning at 04:00. She states yesterday she had a mild headache but otherwise felt okay. She states that for a.m. she woke up with nausea vomiting and loose stools. She denies any abdominal pain. She has headache and body aches. She states she ate of being in frozen male last night. she denies any fever or chills. No upper respiratory symptoms. No blood in her vomit or stools. MD complaint: Vomiting and diarrhea Onset (ago): hour(s) (5) Severity: moderate Quality: aching Pain Consistency: intermittent Relieving factors: none Exacerbating factors: none Associated symptoms: headaches, loss of appetite, malaise, nausea/vomiting and weakness Treatments prior to arrival: none Related Data Previous Rx's Medication Instructions Recorded cetirizine 10 mg capsule 10 mg PO DAILY PRN allergy 04/10/21 symptoms #30 caps ondansetron HCl 4 mg tablet 4 mg PO Q6H PRN nausea and 04/10/21 (Zofran) vomiting #10 tabs ondansetron 4 mg disintegrating 4 mg PO Q6H PRN nausea and 08/21/21 tablet vomiting #10 tabs azithromycin 250 mg tablet See Rx Instructions PO .COMPLEX #6 01/30/22 tabs oarwpfzrbe-kqjpujexaqfkk-jqdhefxn 1 cap PO Q4-6H PRN headache #14 01/30/22 50 mg-300 mg-40 mg capsule caps (Fioricet) bnxiibrlyf-fazystoybjvbh-lcnxscqg 1 cap PO Q8H PRN pain #6 caps 01/30/22 50 mg-300 mg-40 mg capsule (Fioricet) fluticasone propionate 50 2 spray intranasal DAILY #16 grams 01/30/22 mcg/actuation nasal spray,suspension (Flonase Allergy Relief) ondansetron 4 mg disintegrating 4 mg PO Q8H PRN nausea and 01/30/22 tablet vomiting #10 tabs ondansetron 4 mg disintegrating 4 mg PO Q8H PRN nausea and 04/02/22 tablet vomiting #10 tabs Allergies Allergy/AdvReac Type Severity Reaction Status Date / Time amoxicillin [AMOXICILLIN] Allergy Unknown RASH Verified 04/10/21 08:05 penicillin V Allergy Unknown Rash Verified 04/10/21 08:05 Penicillins [PENICILLINS] Allergy Unknown RASH Verified 04/10/21 08:05 pravastatin Allergy Unknown Rash Verified 04/10/21 08:05 Sulfa (Sulfonamide Allergy Unknown RASH Verified 04/10/21 08:05 Antibiotics) [SULFA(SULFONAMIDE ANTIBIOTICS)] azithromycin Allergy Stomach Verified 01/29/22 07:00 Upset Penicillin Allergy Unknown hives Uncoded 04/10/21 08:05 Sulfa Allergy Unknown hives Uncoded 04/10/21 08:05 [facility] Past Medical History Medical History Hyperlipidemia Social History Social History Alcohol intake: never Patient Tobacco Use Status: Never used Tobacco Smoked in Last 30 Days: No Use of substances other than those prescribed or required for medical reasons: No Advance Directives: No Patient : No Physical Exam ED Vital Signs: Vital Signs - 24 hr 04/02/22 08:27 04/02/22 09:45 Temperature 97.8 F Pulse Rate 90 71 Respiratory Rate 16 14 Blood Pressure 173/94 H 128/68 Pulse Oximetry 95 97 Oxygen Delivery Method Room Air Room Air BMI result Body Mass Index 29.2 Appearance: Alert. Oriented X3. No acute distress. Eyes: Pupils equal, round and reactive to light. ENT: Pharynx normal. Neck: Normal inspection. Neck supple. CVS: Normal heart rate and rhythm. Pulses normal. Respiratory: No respiratory distress. Breath sounds normal. Abdomen: Soft and nontender. +BS x4 Skin: Skin warm and dry. Normal skin color. Normal skin turgor. No rashes. Extremities: No lower extremity edema. Neuro: Oriented X 3. nonfocal Course Course Course Narrative: 61-year-old female presenting with nausea, vomiting, diarrhea that started this morning at 04:00. Abdomen is nontender vital signs are stable. Will check basic lab workup and viral swabs. Hold off on imaging for now given her abdomen is soft and nontender. Most likely gastroenteritis. Reevaluation(s) Reevaluation #1: Labs are unremarkable. No leukocytosis or major metabolic derangements. Viral PCR is negative. Most likely viral gastroenteritis. She is tolerating p.o.. She is stable for discharge home with lluvia Larios. Patient agrees with plan. Medications Administered Discontinued Medications Generic Name Dose Route Start Last Admin Trade Name Freq PRN Reason Stop Dose Admin Sodium Chloride 1,000 mls @ 999 mls/hr 04/02/22 08:30 04/02/22 09:57 Ns IVCONT 04/02/22 09:30 Infused .Q1H1M HOWARD Infusion Ketorolac Tromethamine 30 mg 04/02/22 08:21 04/02/22 08:40 Ketorolac Tromethamine 30 Mg/Ml Vial IVPUSH 04/02/22 08:22 30 mg ONCE ONE Administration Ondansetron HCl 4 mg 04/02/22 08:21 04/02/22 08:40 Ondansetron Hcl 4 Mg/2 Ml Vial IVPUSH 04/02/22 08:22 4 mg ONCE ONE Administration Medical Decision Making Lab Data Result Diagrams: 04/02/22 09:08 04/02/22 09:14 Labs: Lab Results 04/02/22 04/02/22 04/02/22 Range/Units 08:34 08:53 09:08 WBC 6.3 (4.8-10.8) X10*3/uL RBC 4.47 (4.20-5.50) X10*6/uL Hgb 14.4 (12.0-16.0) g/dl Hct 40.8 (37.0-47.0) % MCV 91.3 (80.0-98.0) fL MCH 32.2 (27.0-33.0) pg MCHC 35.3 H (31.0-35.0) g/dl RDW 12.1 (11.0-16.0) % Plt Count 284 (160-400) X10*3/uL MPV 9.5 (9.4-12.3) fL Immature Gran % (Auto) 1.0 H (0.0-0.4) % Neut % (Auto) 69.0 (45-73) % Lymph % (Auto) 24.3 (20-40) % [place] % (Auto) 4.3 (2-11) % Eos % (Auto) 0.8 (0-4) % Baso % (Auto) 0.6 (0-2) % Lymph # (Auto) 1.5 (1.2-4.9) X10*3/uL [place] # (Auto) 0.3 (0.1-1.2) X10*3/uL Eos # (Auto) 0.1 (0.0-0.4) X10*3/uL Baso # (Auto) 0.0 (0.0-0.2) X10*3/uL Abs Immat Gran (auto) 0.06 H (0.00-0.03) X10*3/uL Absolute Neuts (auto) 4.3 (2.0-8.3) x10*3/uL Absolute Nucleated RBC 0.000 (0.0-0.012) X10*3/uL Nucleated RBC % (auto) 0.0 (0.0-0.2) /100WBC Sodium (135-145) mmol/L Potassium (3.3-5.1) mmol/L Chloride (96-108) mmol/L Carbon Dioxide (22-29) mmol/L Anion Gap (12-20) BUN (9-16) mg/dL Creatinine (0.5-1.4) mg/dL Estim Creat Clear Calc Estimated GFR Random Glucose (60-115) mg/dL Calcium (8.4-10.2) mg/dL Magnesium (1.6-2.6) mg/dL Total Bilirubin (0.0-1.0) mg/dL Direct Bilirubin (0.0-0.5) mg/dL AST (5-31) U/L ALT (0-31) U/L Alkaline Phosphatase (39-117) U/L Total Protein (6.5-8.0) g/dL Albumin (3.5-5.0) g/dL Urine Color Yellow Urine Appearance Clear Urine pH 8.5 (5.0-9.0) Ur Specific [place] 1.015 (1.005-1.025) Urine Protein Trace (Neg-Trace) mg/dL Urine Glucose (UA) Negative (Negative) mg/dL Urine Ketones Negative (Negative) mg/dL Urine Blood Negative (Negative) Urine Nitrite Negative (Negative) Ur Leukocyte Esterase Trace H (Negative) Urine RBC 0-2 (0-2) /HPF Urine WBC 0-5 (0-5) /HPF Ur Squamous Epith Cells 0-2 (0-2) /HPF Urine Bacteria None Seen (None Seen) Hyaline Casts 0-2 (0-2) /LPF Influenza Type A (PCR) NEGATIVE (Negative) Influenza Type B (PCR) NEGATIVE (Negative) RSV RNA Qual (PCR) NEGATIVE (Negative) SARS-CoV-2 RNA (RT-PCR) NEGATIVE (Negative) 04/02/22 Range/Units 09:14 WBC (4.8-10.8) X10*3/uL RBC (4.20-5.50) X10*6/uL Hgb (12.0-16.0) g/dl Hct (37.0-47.0) % MCV (80.0-98.0) fL MCH (27.0-33.0) pg MCHC (31.0-35.0) g/dl RDW (11.0-16.0) % Plt Count (160-400) X10*3/uL MPV (9.4-12.3) fL Immature Gran % (Auto) (0.0-0.4) % Neut % (Auto) (45-73) % Lymph % (Auto) (20-40) % [place] % (Auto) (2-11) % Eos % (Auto) (0-4) % Baso % (Auto) (0-2) % Lymph # (Auto) (1.2-4.9) X10*3/uL [place] # (Auto) (0.1-1.2) X10*3/uL Eos # (Auto) (0.0-0.4) X10*3/uL Baso # (Auto) (0.0-0.2) X10*3/uL Abs Immat Gran (auto) (0.00-0.03) X10*3/uL Absolute Neuts (auto) (2.0-8.3) x10*3/uL Absolute Nucleated RBC (0.0-0.012) X10*3/uL Nucleated RBC % (auto) (0.0-0.2) /100WBC Sodium 140 (135-145) mmol/L Potassium 3.8 (3.3-5.1) mmol/L Chloride 108 (96-108) mmol/L Carbon Dioxide 23 (22-29) mmol/L Anion Gap 13 (12-20) BUN 13 (9-16) mg/dL Creatinine 0.65 (0.5-1.4) mg/dL Estim Creat Clear Calc 90.3 Estimated GFR > 60 Random Glucose 117 H (60-115) mg/dL Calcium 8.6 D (8.4-10.2) mg/dL Magnesium 2.0 (1.6-2.6) mg/dL Total Bilirubin 0.6 (0.0-1.0) mg/dL Direct Bilirubin 0.2 (0.0-0.5) mg/dL AST 18 (5-31) U/L ALT 25 (0-31) U/L Alkaline Phosphatase 48 (39-117) U/L Total Protein 6.3 L (6.5-8.0) g/dL Albumin 4.3 (3.5-5.0) g/dL Urine Color Urine Appearance Urine pH (5.0-9.0) Ur Specific [place] (1.005-1.025) Urine Protein (Neg-Trace) mg/dL Urine Glucose (UA) (Negative) mg/dL Urine Ketones (Negative) mg/dL Urine Blood (Negative) Urine Nitrite (Negative) Ur Leukocyte Esterase (Negative) Urine RBC (0-2) /HPF Urine WBC (0-5) /HPF Ur Squamous Epith Cells (0-2) /HPF Urine Bacteria (None Seen) Hyaline Casts (0-2) /LPF Influenza Type A (PCR) (Negative) Influenza Type B (PCR) (Negative) RSV RNA Qual (PCR) (Negative) SARS-CoV-2 RNA (RT-PCR) (Negative) Critical Care Time Critical Care Time Critical Care Time: No Discharge Plan Discharge Clinical Impression: Gastroenteritis Patient Disposition: Home, Self-Care Instructions: Gastroenteritis (ED) Additional Instructions: You lab workup today was unremarkable. Your urine test was negative for infection You most likely have a viral GI bug also known as gastroenteritis. Treatment is supportive care, symptoms usually resolve on their own in 48-72 hours. Recommend rest and plenty of oral hydration. Stick to a bland diet like soup and toast while you are not feeling well. Take the prescribed medication as needed for nausea. Recommend over the counter Pepto Bismol or Imodium for upset stomach and diarrhea. Follow up with your doctor as needed. If you develop new or worsening symptoms call 911 or come back to the ER for further evaluation. Prescriptions: New ondansetron 4 mg tablet,disintegrating 4 mg PO Q8H PRN (Reason: nausea and vomiting) Qty: 10 0RF No Action ondansetron HCl [Zofran] 4 mg tablet 4 mg PO Q6H PRN (Reason: nausea and vomiting) Qty: 10 0RF cetirizine 10 mg capsule 10 mg PO DAILY PRN (Reason: allergy symptoms) Qty: 30 0RF ondansetron 4 mg tablet,disintegrating 4 mg PO Q6H PRN (Reason: nausea and vomiting) Qty: 10 0RF azithromycin 250 mg tablet See Rx Instructions .ROUTE .COMPLEX Qty: 6 0RF Rx Instructions: take 500 mg today (day 1), then 250 mg for 4 days (days 2-5) ondansetron 4 mg tablet,disintegrating 4 mg PO Q8H PRN (Reason: nausea and vomiting) Qty: 10 0RF fluticasone propionate [Flonase Allergy Relief] 50 mcg/actuation spray,suspension 2 spray intranasal DAILY Qty: 16 0RF Rx Instructions: administer into each nostril hmukabzgjo-gzzkxpdgrrhvw-gofi [Fioricet] 50-300-40 mg capsule 1 cap PO Q4-6H PRN (Reason: headache) Qty: 14 0RF qbzlhbdxqs-ofubgvnakyybe-kfhy [Fioricet] 50-300-40 mg capsule 1 cap PO Q8H PRN (Reason: pain) Qty: 6 0RF
[2022-04-02 08:27] VITALS: BP 173/94; PULSE 90; RESP 16; O2SAT 95; BMI 29.2
[2022-04-02] MEDS: 0.9 % Sodium Chloride 1,000 ML 999 ML IVCONT (08:40)
[2022-04-02] MEDS: ondansetron HCL 4 MG/2 ML VIAL IVPUSH (08:40)
[2022-04-02] MEDS: Ketorolac Tromethamine 30 MG/ML VIAL IVPUSH (08:40)
--- NOTE | 2022-04-02 08:45 | PC.NURSE ---
pt alert and oriented, skin pwd, respirations even and unlabored, pt reports around 0400 started with vomiting/diarrhea/headache, pt is currently dry heaving
[2022-04-02 09:02] LABS: Appearance Urine Clear; Color Urine Yellow; Glucose Urine UA Negative (Negative); Leukocyte Esterase Urine Trace (Negative); Nitrite Urine Negative (Negative); PH 8.5 (5.0-9.0); Specific Gravity - Urine 1.015 (1.005-1.025); UMIC TRIGGER UACC YES; Urine Blood Negative (Negative); Urine Ketones Negative (Negative); Urine Protein Trace mg/dL (Neg-Trace)
[2022-04-02 09:13] LABS: Basophils Percent Auto 0.6 % (0-2); Eosinophils Absolute Auto 0.1 X10*3/uL (0.0-0.4); Eosinophils Percent Auto 0.8 % (0-4); Hematocrit 40.8 % (37.0-47.0); Hemoglobin 14.4 g/dl (12.0-16.0); Imm Gran Abs Auto 0.06 X10*3/uL (0.00-0.03); Lymphocytes Absolute Auto 1.5 X10*3/uL (1.2-4.9); Lymphocytes Percent Auto 24.3 % (20-40); Mean Corpuscular HGB Conc 35.3 g/dl (31.0-35.0); Mean Corpuscular Hemoglobin 32.2 pg (27.0-33.0); Mean Corpuscular Volume 91.3 fL (80.0-98.0); Mean Platelet Volume 9.5 fL (9.4-12.3); Monocytes Absolute Auto 0.3 X10*3/uL (0.1-1.2); Monocytes Percent Auto 4.3 % (2-11); Neutrophils Absolute Auto 4.3 x10*3/uL (2.0-8.3); Platelet Count 284 X10*3/uL (160-400); Red Blood Count 4.47 X10*6/uL (4.20-5.50); Red Cell Distribution Width 12.1 % (11.0-16.0); White Blood Count 6.3 X10*3/uL (4.8-10.8)
[2022-04-02 09:22] LABS: Bacteria Urine None Seen (None Seen); Hyaline Casts Urine 0-2 /LPF (0-2); RBC Urine 0-2 /HPF (0-2); Squamous Epithelial Cell Urine 0-2 /HPF (0-2); WBC Urine 0-5 /HPF (0-5)
[2022-04-02 09:38] LABS: Alanine Aminotransferase 25 U/L (0-31); Albumin Level 4.3 g/dL (3.5-5.0); Alkaline Phosphatase 48 U/L (39-117); Anion Gap 13 (12-20); Aspartate Amino Transferase 18 U/L (5-31); Bilirubin Direct 0.2 mg/dL (0.0-0.5); Bilirubin Total 0.6 mg/dL (0.0-1.0); Blood Urea Nitrogen 13 mg/dL (9-16); Calcium 8.6 mg/dL (8.4-10.2); Carbon Dioxide 23 mmol/L (22-29); Chloride 108 mmol/L (96-108); Creatinine Clr Calc Pharmacy 90.3; Estimated Glomerular Filt Rate > 60; Glucose Random 117 mg/dL (60-115); Potassium 3.8 mmol/L (3.3-5.1); Sodium 140 mmol/L (135-145); Total Protein 6.3 g/dL (6.5-8.0)
[2022-04-02 09:40] LABS: Influenza A PCR NEGATIVE (Negative); Influenza B PCR NEGATIVE (Negative); Resp Syncy Virus RNA Qual PCR NEGATIVE (Negative); SARS COV2 PCR INHOUSE NEGATIVE (Negative)
[2022-04-02 09:45] VITALS: BP 128/68; PULSE 71; RESP 14; TEMP 36.6; O2SAT 97
[2022-04-02 09:54] LABS: MANUAL DIFF FLAG NO
== END 2022-04-02 11:09 | disposition home or self-care (01) ==
PROVIDERS: Physician Assistant; Emergency Provider Emergency Medicine
DX: K52.9 Noninfective gastroenteritis and colitis, unspecified (principal); Z20.822 Contact with and (suspected) exposure to COVID-19
CPT/HCPCS: 0241U; 80048; 80076; 81001; 81003; 83735; 85025; 96361; 96374; 96375; 99284; J1885; J2405

== ENCOUNTER 2023-07-14 10:33 | Outpatient (AMB) | payer OTHER, SELFPAY ==
--- NOTE | 2023-07-14 10:49 | A.OFFPC_ITS ---
Vital Signs 07/14/23 11:03 07/14/23 11:08 Height 5 ft 2.6 in Weight 170 lb 8 oz BMI 30.6 BP 140/89 H 134/81 Blood Pressure Location Rt brachial Rt brachial Position Sitting Sitting Respiration 12 Pulse 88 Pulse Source Pulse Oximeter Temp 98.1 F Temp Source Temporal Artery Scan Pulse Oximetry (%) 96 Oxygen Delivery Method Room Air Intake Visit Reasons: est care Intake Note: New patient visit Visiting Teacher Required: No Allergies amoxicillin [AMOXICILLIN] Allergy (Unknown, Verified 07/14/23 11:03) RASH penicillin V Allergy (Unknown, Verified 07/14/23 11:03) Rash Penicillins [PENICILLINS] Allergy (Unknown, Verified 07/14/23 11:03) RASH pravastatin Allergy (Unknown, Verified 07/14/23 11:03) Rash Sulfa (Sulfonamide Antibiotics) [SULFA(SULFONAMIDE ANTIBIOTICS)] Allergy (Unknown, Verified 07/14/23 11:03) RASH azithromycin Allergy (Verified 07/14/23 11:03) Stomach Upset Penicillin Allergy (Unknown, Uncoded 07/14/23 10:51) hives Sulfa Allergy (Unknown, Uncoded 07/14/23 10:51) hives Medication List - Last Reviewed 07/14/23 by Daniella Loja, WARREN amitriptyline 25 mg PO BEDTIME PRN cetirizine 10 mg PO DAILY PRN cyclosporine 0.05% drps ophthalmic (eye) epinephrine (EpiPen) 0.3 mg IM Q4H PRN ezetimibe 10 mg PO DAILY fluticasone propionate 50 mcg/actuation (Flonase Allergy Relief) 2 sprays intranasal DAILY hyoscyamine sulfate 0.25 mg sublingual BID lorazepam 1 mg PO DAILY PRN metoclopramide HCl 10 mg PO Q6H PRN naproxen 500 mg PO BID olopatadine 0.7% (Pataday Once Daily Relief) 1 drp ophthalmic (eye) DAILY pantoprazole 40 mg PO BID promethazine (Promethegan) 25 mg OH DAILY Tobacco use date assessed: 07/14/23 Dental Screening Dental Screen Date: 07/14/23 Did you have a dental visit in the last 12 months?: No Did you have a dental problem in the last 6 months where you did not have access to dental care?: No Was dental information given to patient?: Patient has dentist HPI HPI Comments History of Present Illness Details 63 y/o F with HLD, PADMAJA, GERD, IBS, seaso nal allergies, eczema Health Maintenance: Colon reports UTD DEXA reports UTD Mammo reports UTD Pap states WNL, cleared for q 5 year screen Vaccines: PCV done a few years ago at [facility]; states UTD on Tdap; UTD on flu shot. Specialists: [facility] records from ED visits only [place] today for CPE[place] CC IBS using amytripyline at to help. Helps w/ most of IBS sx however makes her feel really tired and decreased motivation. Dose was decreased from 25mg to 5 mg and this did not help and also caused recurrence of her IBS sx. Now taking 12.5mg and feels this is working some. Would like to f/u with [facility] - Dr Milian. Dentist - routine Eye - dry eyes needs referral Skin - would like referral for eczema PFS Medical History Hyperlipidemia Family History (Updated 07/14/23 @ 11:45 by Daniella Loja [facility]) Mother Hypertension Hypercholesteremia Thyroid disorder Father Hypercholesteremia Hypertension Diabetes Cardiovascular disease Brother Hypercholesteremia Hypertension Asthma Thyroid disorder Social History Housing: House Alcohol intake: never Patient Tobacco Use Status: Former Tobacco user Cigarette Packs Per Day: 0.25 Years Smoked: 10 e-Cigarette/Vaping Use: Never Used Second Hand Smoke Exposure: No service: No Current occupational status: retired Current occupational exposures/hazards: No Cognitive needs: No Hearing needs: No Vision needs: Yes Questionnaire PHQ-9 Over the last 2 weeks, how often have you been bothered by any of the following problems? 1. Little interest or pleasure in doing things: more than half the days 2. Feeling down, depressed, or hopeless: nearly every day 3. Trouble falling or staying asleep, or sleeping too much: nearly every day 4. Feeling tired or having little energy: more than half the days 5. Poor appetite or overeating: not at all 6. Feeling bad about yourself - or that you are a failure or have let yourself or your family down: several days 7. Trouble concentrating on things, such as reading the newspaper or watching television: not at all 8. Moving or speaking so slowly that other people could have noticed. Or the opposite - being so fidgety or restless that you have been moving around a lot more than usual: not at all 9. Thoughts that you would be better off or of hurting yourself in some way: not at all Total score: 11 Depression Screening Interpretation: Positive Depression Screening Follow-up: Existing condition Depression Screening Done: Yes 64875 - PHQ-9 Billing: Yes Source: Developed by Drs. Kennedy Chowdhury, Bianca Jasmine, Pedro Abraham and colleagues, with an educational moraima from [employer]. Thrive Questionnaire Date Thrive assessed: 07/14/23 I am a: Patient What is your living situation today?: I have a steady place to live Within the past 12 months, did the food you bought not last and you didn't have the money to get more?: Never true Within the past 12 months, did you worry whether your food would run out before you got money to buy more?: Never true Do you have trouble paying for medicines?: No Do you have trouble getting transportation to medical appointments?: No Do you have trouble paying your heating and electricity bill?: No Do you have trouble taking care of your child, family member or friend?: No Do you have trouble with day-to-day activities such as bathing, preparing meals, shopping, managing finances, etc.?: No Are you currently unemployed and looking for a job?: No Are you interested in more education?: No Please select the resources that you would like help with: None Currently or been in a relationship where the following occur: no concerns reported THRIVE Score: 0 AUDIT C Alcohol Use Questionnaire (AUDIT-C) 1. How often do you have a drink containing alcohol?: Monthly or less 2. How many drinks containing alcohol do you have on a typical day when you are drinking?: 1 or 2 3. How often do you have six or more drinks on one occasion?: Never Total Score: 1 Score Reviewed/Action Taken: Yes PADMAJA-7 AMB Questionnaire PADMAJA-7 Date PADMAJA - 7 assessed: 07/14/23 Feeling nervous, anxious, or on edge: 0 = Not at all Not being able to stop or control worryin = Not at all Worrying too much about different things: 0 = Not at all Trouble relaxin = Not at all Being so restless that it is hard to sit still: 0 = Not at all Becoming easily annoyed or irritable: 0 = Not at all Feeling afraid as if something awful might happen: 0 = Not at all Total PADMAJA-7 score (0-4 normal; 5-9 mild; 10-14 moderate; 15-21 severe): 0 Source: Developed by Drs. Kennedy Chowdhury, Bianca Jasmine, Pedro Abraham and colleagues, with an educational moraima from [employer]. PADMAJA-7 Assessment Billing PADMAJA-7 Assessment Tool: PADMAJA-7 Assessment [id number] ACT Questionnaire In the past 4 weeks, how much of the time did your asthma keep you from getting as much done at work, school or at home?: None of the time During the past 4 weeks, how often have you had shortness of breath?: Not at all During the past 4 weeks, how often did your asthma symptoms wake you up at night or earlier than usual in the morning?: Not at all During the past 4 weeks, how often have you had to use your rescue inhaler or nebulizer medication?: Not at all How would you rate your asthma control during the past 4 weeks?: Completely controlled ACT Interpretation: Negative Score: 25 Review of Systems Const Details: Constitutional: Denies fever. Skin: Denies rash. Eye: Denies eye pain. ENMT: Denies sore throat and nasal congestion. Respiratory: Denies shortness of breath and cough. Gastrointestinal: Denies nausea, vomiting or abdominal pain. Cardiovascular: Denies chest pain and syncope. Genitourinary: Denies dysuria. Musculoskeletal: Denies back pain and extremity pain. Neurologic: Denies headaches, confusion, and weakness. Psychiatric: Denies suicidal thoughts and substance abuse. Allergy/ Immunologic: Denies impaired immunity. Physical exam (Primary Care) Vital Signs: Last Vital Signs Temp 98.1 F 07/14/23 11:03 Pulse 88 07/14/23 11:03 Resp 12 07/14/23 11:03 BP 134/81 07/14/23 11:08 Pulse Ox 96 07/14/23 11:03 Oxygen Delivery Method Room Air 07/14/23 11:03 BMI result Body Mass Index 30.6 BMI Assessment/Plan discussion: High BMI High, discussed plan: lifestyle Tobacco/Smoking Status: Tobacco use Status Tobacco use date assessed 07/14/23 07/14/23 11:04 Patient Tobacco Use Status Former Tobacco user 07/14/23 11:04 e-Cigarette/Vaping Use Never Used 07/14/23 11:04 PHQ-9: PHQ-9 Score PHQ-9: Total score 11 07/14/23 11:48 Depression Screening Interpretation: Positive Depression Screening Follow-up: Existing condition Thrive Assessment: Date of Thrive Assessment Date Thrive assessed 07/14/23 07/14/23 11:48 Currently or been in a relationship where the following occur: no concerns reported Const Other: General: Well developed, well nourished, in no acute distress. Appears stated age. Head: Normocephalic, atraumatic. Eyes: Pupils are equal, round and reactive to light and accommodation. Conjunctivae are clear. Vision grossly normal. Ears: TMs clear AU, EACS WNL Nose: Patent, without discharge. Mouth: There are no ulcers or lesions noted. No inflammation, no post nasal drip, no plaques nor exudates. Neck: Supple, no adenopathy or thyromegaly. Lungs: Clear to auscultation bilaterally. No rales, rhonchi or wheeze noted. Good air flow in all jones. Heart: Regular rate and rhythm. No murmurs, click, rubs or gallops are noted. Abdomen: Bowel sounds present in all quadrants. The abdomen is soft, nontender, with no masses or organomegaly noted. No hernias are noted. Musculoskeletal: Joints are nontender, without swelling, redness, or effusions. Range of motion is observed to be normal. Pulses: Peripheral pulses are equal and palpable bilaterally. Extremities: No clubbing, cyanosis nor edema is noted. Neurologic: Gait and station normal. Cranial Nerves 2-12 intact. Motor strength grossly symmetrical and intact. No sensory loss. Balance normal. Skin: No rashes, ulcers, or lesions noted. Turgor is good. Skin color is good. Hair and nails are without abnormalities. Psych: Normal eye contact, affect and mood appropriate, and normal interactions. Patient is alert and appropriate to context. Assessment and Plan Assessment & Plan (1) Physical exam: Code(s): Z00.00 - Encounter for general adult medical examination without abnormal findings (2) IBS (irritable bowel syndrome): Comment: Currently managed on amitriptyline 12.5 mg at bedtime. Also has hyoscyamine 0.25 mg 2 times per day, Reglan 10 mg every 6 hours as needed and promethazine suppositories. Referred to GI for further evaluation and treatment Code(s): K58.9 - Irritable bowel syndrome without diarrhea Qualifiers: Irritable bowel syndrome type: with both diarrhea and constipation Qualified Code(s): K58.2 - Mixed irritable bowel syndrome (3) Mild intermittent asthma: Comment: Reports related to seasonal allergies. Had allergy shots. Her asthma is very well controlled now Continue to use Flonase Code(s): J45.20 - Mild intermittent asthma, uncomplicated Qualifiers: Asthma complication type: uncomplicated Qualified Code(s): J45.20 - Mild intermittent asthma, uncomplicated (4) History of anemia: Comment: Check labs Code(s): Z86.2 - Personal history of diseases of the blood and blood-forming organs and certain disorders involving the immune mechanism (5) PADMAJA (generalized anxiety disorder): Comment: Amitriptyline 12.5 mg being used for IBS she continues to feel anxiety. Interested in discussing alternative treatments however leaving for [place] and does not want to change anything at the current time. We will discuss at the future visit Code(s): F41.1 - Generalized anxiety disorder (6) Vitamin D deficiency: Comment: Reports a history. Check labs Code(s): E55.9 - Vitamin D deficiency, unspecified (7) Keratoconjunctivitis: Comment: Refer to ophthalmology Code(s): H16.209 - Unspecified keratoconjunctivitis, unspecified eye Qualifiers: Laterality: bilateral Qualified Code(s): H16.203 - Unspecified keratoconjunctivitis, bilateral (8) Screening for skin condition: Code(s): Z13.89 - Encounter for screening for other disorder Plan: Refer to dermatology for evaluation and treatment. Reports history of eczema Orders: Orders Vitamin D 1,25 dihydroxy Today E55.9 - Vitamin D deficiency, unspecified, F41.1 - Generalized anxiety disorder, J45.20 - Mild intermittent asthma, uncomplicated, K58.9 - Irritable bowel syndrome without diarrhea, Z86.2 - Personal history of diseases of the blood and blood-forming organs and certain disorders involving the immune mechanism Comprehensive Met. Panel Today E55.9 - Vitamin D deficiency, unspecified, F41.1 - Generalized anxiety disorder, J45.20 - Mild intermittent asthma, uncomplicated, K58.9 - Irritable bowel syndrome without diarrhea, Z86.2 - Personal history of diseases of the blood and blood-forming organs and certain disorders involving the immune mechanism Microalbumin, Random (w Creat) Today E55.9 - Vitamin D deficiency, unspecified, F41.1 - Generalized anxiety disorder, J45.20 - Mild intermittent asthma, uncomplicated, K58.9 - Irritable bowel syndrome without diarrhea, Z86.2 - Personal history of diseases of the blood and blood-forming organs and certain disorders involving the immune mechanism TSH reflex Free T4 Today E55.9 - Vitamin D deficiency, unspecified, F41.1 - Generalized anxiety disorder, J45.20 - Mild intermittent asthma, uncomplicated, K58.9 - Irritable bowel syndrome without diarrhea, Z86.2 - Personal history of diseases of the blood and blood-forming organs and certain disorders involving the immune mechanism LDL Cholesterol Direct Today E55.9 - Vitamin D deficiency, unspecified, F41.1 - Generalized anxiety disorder, J45.20 - Mild intermittent asthma, uncomplicated, K58.9 - Irritable bowel syndrome without diarrhea, Z86.2 - Personal history of diseases of the blood and blood-forming organs and certain disorders involving the immune mechanism IRON PROFILE Today E55.9 - Vitamin D deficiency, unspecified, F41.1 - Generalized anxiety disorder, J45.20 - Mild intermittent asthma, uncomplicated, K58.9 - Irritable bowel syndrome without diarrhea, Z86.2 - Personal history of diseases of the blood and blood-forming organs and certain disorders involving the immune mechanism Complete Blood Count no Diff Today E55.9 - Vitamin D deficiency, unspecified, F41.1 - Generalized anxiety disorder, J45.20 - Mild intermittent asthma, uncomplicated, K58.9 - Irritable bowel syndrome without diarrhea, Z86.2 - Personal history of diseases of the blood and blood-forming organs and certain disorders involving the immune mechanism Vitamin B12 and Folate Today E55.9 - Vitamin D deficiency, unspecified, F41.1 - Generalized anxiety disorder, J45.20 - Mild intermittent asthma, uncomplicated, K58.9 - Irritable bowel syndrome without diarrhea, Z86.2 - Personal history of diseases of the blood and blood-forming organs and certain disorders involving the immune mechanism Referrals [facility] Referral K58.9 - Irritable bowel syndrome without diarrhea Ophthalmology Referral H16.209 - Unspecified keratoconjunctivitis, unspecified eye Gastroenterology Referral K58.9 - Irritable bowel syndrome without diarrhea Dermatology Referral Z13.89 - Encounter for screening for other disorder Medications: New pantoprazole 40 mg PO BID 180 tabs 1RF Patient Instructions: Health screenings for women ages 18 to 39 You should visit your health care provider from time to time, even if you are healthy. The purpose of these visits is to: Screen for medical issues Assess your risk for future medical problems Encourage a healthy lifestyle Update vaccinations and other preventive care services Help you get to know your provider in case of an illness Information Even if you feel fine, you should still see your provider for regular checkups. These visits can help you avoid problems in the future. For example, the only way to find out if you have high blood pressure is to have it checked regularly. High blood sugar and high cholesterol levels also may not have any symptoms in the early stages. A simple blood test can check for these conditions. There are specific times when you should see your provider or receive specific health screenings. The [place] Preventive Services Task Force publishes a list of recommended screenings. Below are screening guidelines for women ages 18 to 39. BLOOD PRESSURE SCREENING Your blood pressure should be checked at least once every 3 to 5 years if: Your blood pressure is in the normal range (top number less than 120 mm Hg and bottom number less than 80 mm Hg) You don't have risk factors for high blood pressure Ask your provider if you need your blood pressure checked more often if: The top number is 120 to 129 mm Hg or the bottom number is 70 to 79 mm Hg You have diabetes, heart disease, kidney problems, are overweight, or have certain other health conditions You have a first-degree relative with high blood pressure You are Black You had high blood pressure during a If the top number is 130 mm Hg or greater or the bottom number is 80 mm Hg or greater, this is considered stage 1 hypertension. Schedule an appointment with your provider to learn how you can reduce your blood pressure. Watch for blood pressure screenings in your area. Ask your provider if you can stop in to have your blood pressure checked. BREAST CANCER SCREENING Experts do not agree about the benefits of breast self-exams in finding breast cancer or saving lives. Talk to your provider about what is best for you. A screening mammogram is not recommended for most women under age 40. Your provider may discuss and recommend mammograms, MRI scans, or ultrasounds if you have an increased risk for breast cancer, such as: A mother or sister who had breast cancer at a young age (most often starting screening earlier than the age the close relative was diagnosed) You carry a high-risk genetic marker CERVICAL CANCER SCREENING Cervical cancer screening should start at age 21 years unless your provider advises otherwise. After the first test: Women ages 21 through 29 should have a Pap test every 3 years. Exoprts do not agree on whether HPV testing is recommended for this age group. Women ages 30 through 65 should be screened with either a Pap test every 3 years or the HPV test every 5 years or both tests every 5 years (called cotesting ). Women who have been treated for precancer (cervical dysplasia) should continue to have Pap tests for 20 years after treatment or until age 65, whichever is longer. If you have had your uterus and cervix removed (total hysterectomy), and you have not been diagnosed with cervical cancer or precancer (high grade cervical neoplasia), you do not need cervical cancer screening. CHOLESTEROL SCREENING Cholesterol screening should begin at: Age 45 for women with no known risk factors for coronary heart disease Age 20 for women with known risk factors for coronary heart disease Repeat cholesterol screening should take place: Every 5 years for women with normal cholesterol levels More often if changes occur in lifestyle (including weight gain and diet) More often if you have diabetes, heart disease, kidney problems, or certain other conditions DIABETES SCREENING You should be screened for diabetes starting at age 35 and then repeated every 3 years if you have no risk factors for diabetes. Screening may need to start earlier and be repeated more often if you have other risk factors for diabetes, such as: You have a first degree relative with diabetes. You are overweight or have obesity. You have high blood pressure, prediabetes, or a history of heart disease. Screening for diabetes should be done if you are planning to become and you are overweight and have other risk factors such as high blood pressure. DENTAL EXAM Go to the dentist once or twice every year for an exam and cleaning. Your dentist will evaluate if you need more frequent visits. EYE EXAM Have an eye exam every 5 to 10 years before age 40. If you have vision problems, have an eye exam every 2 years or more often if recommended by your provider. You should have an eye exam that includes an examination of your retina (back of your eye) at least every year if you have diabetes. IMMUNIZATIONS Commonly needed vaccines include: Flu shot: get one every year. COVID-19 vaccine: ask your provider what is best for you. Tetanus-diphtheria and acellular pertussis (Tdap) vaccine: have one at or after age 19 as one of your tetanus-diphtheria vaccines if you did not receive it as an adolescent. Tetanus-diphtheria: have a booster (or Tdap) every 10 years. Varicella vaccine: receive 2 doses if you never had chickenpox or the varicella vaccine. Hepatitis B vaccine: receive 2, 3, or 4 doses, depending on your exact circumstances. Measles, mumps, and rubella (MMR) vaccine: receive 1 to 2 doses if you are not already immune to MMR. Your provider can tell you if you are immune. Ask your provider about the human papillomavirus (HPV) vaccine if: You have not received the HPV vaccine in the past You have not completed the full vaccine series (you should catch up on this shot) Ask your provider if you should receive other immunizations if you have certain health problems that increase your risk for some diseases such as pneumonia. INFECTIOUS DISEASE SCREENING Women who are sexually active should be screened for chlamydia and gonorrhea up until age 25. Women 25 years and older should be screened for chlamydia and gonorrhea if at high risk. Screening for hepatitis C: All adults ages 18 to 79 should get a one-time test for hepatitis C. people should be screened at every . Screening for human immunodeficiency virus (HIV): All people ages 15 to 65 should get a one-time test for HIV. Depending on your lifestyle and medical history, you may also need to be screened for infections such as syphilis and HIV, as well as other infections. PHYSICAL EXAM All adults should visit their provider from time to time, even if they are healthy. The purpose of these visits is to: Screen for disease Assess your risk of future medical problems Encourage a healthy lifestyle Update your vaccinations and other preventive care services Maintain a relationship with a provider in case of an illness Your height, weight, and BMI should be checked at every exam. During your exam, your provider may ask you about: Depression and anxiety Diet and exercise Alcohol and tobacco use Safety issues, such as using seat belts, smoke detectors, and intimate partner violence Your medicines and risk for interactions SKIN SELF-EXAM Your provider may check your skin for signs of skin cancer, especially if you're at high risk, such as if you: Have had skin cancer before Have close relatives with skin cancer Have a weakened immune system OTHER SCREENING Talk with your provider about colon cancer screening if you have a strong family history of colon cancer or polyps, or if you have had inflammatory bowel disease or polyps yourself. Routine bone density screening of women under 40 is not recommended. Coding Level of Care Code New Pt Prev Care 40-64y(53235) Diagnoses Physical exam Z00.00 Irritable bowel syndrome with both constipation and diarrhea K58.2 Irritable bowel syndrome type: with both diarrhea and constipation Mild intermittent asthma without complication J45.20 Asthma complication type: uncomplicated History of anemia Z86.2 PADMAJA (generalized anxiety disorder) F41.1 Vitamin D deficiency E55.9 Keratoconjunctivitis of both eyes H16.203 Laterality: bilateral Screening for skin condition Z13.89 Additional Codes PADMAJA-7 Assessment Billing - PADMAJA-7 Assessment Tool: PADMAJA-7 Assessment [id number] ([id number])
[2023-07-14 11:03] VITALS: BP 140/89; PULSE 88; RESP 12; TEMP 36.7; O2SAT 96; BMI 30.6
[2023-07-14 11:08] VITALS: BP 134/81
== END 2023-07-14 11:40 | disposition home or self-care (01) ==
PROVIDERS: PCP Nurse Practitioner Family; Visit Provider Nurse Practitioner Family
DX: Z00.00 Encounter for general adult medical examination without abnormal findings (principal); K58.2 Mixed irritable bowel syndrome; J45.20 Mild intermittent asthma, uncomplicated; Z86.2 Personal history of diseases of the blood and blood-forming organs and certain disorders involving the immune mechanism; F41.1 Generalized anxiety disorder; E55.9 Vitamin D deficiency, unspecified; H16.203 Unspecified keratoconjunctivitis, bilateral; Z13.89 Encounter for screening for other disorder
CPT/HCPCS: 99386

== ENCOUNTER 2023-07-14 11:47 | Outpatient (REF) | payer OTHER, SELFPAY ==
[2023-07-14 15:29] LABS: Creatinine Urine 38.13 mg/dL; Microalbumin Urine < 5.0 mg/L
[2023-07-14 18:34] LABS: Hematocrit 46.8 % (37.0-47.0); Hemoglobin 16.2 g/dl (12.0-16.0); Mean Corpuscular HGB Conc 34.6 g/dl (31.0-35.0); Mean Corpuscular Hemoglobin 31.5 pg (27.0-33.0); Mean Corpuscular Volume 90.9 fL (80.0-98.0); Mean Platelet Volume 9.3 fL (9.4-12.3); Platelet Count 319 X10*3/uL (160-400); Red Blood Count 5.15 X10*6/uL (4.20-5.50); Red Cell Distribution Width 12.6 % (11.0-16.0); White Blood Count 7.5 X10*3/uL (4.8-10.8)
[2023-07-14 18:52] LABS: Alanine Aminotransferase 48 U/L (0-31); Albumin Level 4.7 g/dL (3.5-5.0); Alkaline Phosphatase 58 U/L (39-117); Anion Gap 13 (12-20); Aspartate Amino Transferase 26 U/L (5-31); Bilirubin Total 0.3 mg/dL (0.0-1.0); Blood Urea Nitrogen 9 mg/dL (9-16); Calcium 9.6 mg/dL (8.4-10.2); Carbon Dioxide 25 mmol/L (22-29); Chloride 106 mmol/L (96-108); Estimated Glomerular Filt Rate > 60; Glucose Random 76 mg/dL (60-115); Iron 119 mcg/dL (30-160); Percent Iron Saturation 40 % (15-50); Potassium 3.9 mmol/L (3.3-5.1); Sodium 140 mmol/L (135-145); Total Iron Binding Capacity 297 mcg/dL (228-428); Total Protein 7.6 g/dL (6.5-8.0); Unsaturated Iron Binding 178 ug/dL
[2023-07-14 19:06] LABS: TSH reflex Free T4 2.75 uIU/mL (0.32-4.0)
[2023-07-14 19:19] LABS: Folate 14.3 ng/mL (> or = 4.0); Vitamin B12 841 pg/mL (200-900)
[2023-07-15 09:28] LABS: LDL Cholesterol Direct 179 mg/dL (<100)
[2023-07-18 15:43] LABS: VITAMIN D (1,25 OH) D3 29 pg/mL; Vit D (1,25-Dihydroxy) Total 59 pg/mL (18-72); Vitamin D (1,25 OH) D2 30 pg/mL
== END 2023-07-14 11:48 | disposition home or self-care (01) ==
LOC: HO.WFDLDS 11:47
PROVIDERS: Visit Provider Nurse Practitioner Family
DX: F41.1 Generalized anxiety disorder (principal); J45.20 Mild intermittent asthma, uncomplicated; K58.9 Irritable bowel syndrome, unspecified; E55.9 Vitamin D deficiency, unspecified; Z86.2 Personal history of diseases of the blood and blood-forming organs and certain disorders involving the immune mechanism
CPT/HCPCS: 36415; 80053; 82043; 82570; 82607; 82652; 82746; 83540; 83721; 84443; 85027

== ENCOUNTER 2023-09-29 09:04 | Outpatient (REF) | payer OTHER, SELFPAY ==
[2023-09-29 11:23] LABS: C Reactive Protein 0.19 mg/dL (< or = 0.50)
[2023-10-03 22:53] LABS: Transglutaminase Ab IgG <1.0 U/mL; Transglutaminase IgA <1.0 U/mL
== END 2023-09-29 09:05 | disposition home or self-care (01) ==
LOC: HO.LAB 09:04
PROVIDERS: PCP Nurse Practitioner Family; Referring Provider Nurse Practitioner Family; Visit Provider Nurse Practitioner
DX: R19.7 Diarrhea, unspecified (principal)
CPT/HCPCS: 36415; 86140; 86364; 99202

== ENCOUNTER 2023-09-29 09:04 | Outpatient (AMB) | payer OTHER, SELFPAY ==
--- NOTE | 2023-09-29 09:07 | MHC.OFFVIS ---
Vital Signs 09/29/23 09:10 Height 5 ft 2.6 in Weight 168 lb 6.931 oz BMI 30.2 BP 143/86 H Blood Pressure Location Rt brachial Position Sitting Pulse 82 Intake Visit Reasons: Irritable bowel syndrome without diarrhea Intake Note: Wilian presents to in office visit today as a new patient for IBS with diarrhea. CC: Patient states that she was diagnosed with IBS years ago. She c/o watery diarrhea since last Monday or w/nausea and one episode of vomiting. She also reports that she feels lot of gurgling in her stomach, the sensation of having to pass gas and not been able to. Reports one episode of soiling her bed, and states that the stool is a watery gold color. Last colonoscopy last year in [place] and one polyp was removed per PT. Sales Engineer Required: No Allergies amoxicillin [AMOXICILLIN] Allergy (Unknown, Verified 09/29/23 09:18) RASH Penicillins [PENICILLINS] Allergy (Unknown, Verified 09/29/23 09:18) RASH pravastatin Allergy (Unknown, Verified 09/29/23 09:18) Rash Sulfa (Sulfonamide Antibiotics) [SULFA(SULFONAMIDE ANTIBIOTICS)] Allergy (Unknown, Verified 09/29/23 09:18) RASH azithromycin Allergy (Verified 09/29/23 09:18) Stomach Upset HPI HPI Irritable bowel syndrome without diarrhea: Details: 63-year-old female here for initial evaluation of IBS. She is referred by Ondina MITCHELL-BC of [facility] primary care. P.m. 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 Endometrial ablation Tubal ligation- pt denies * ALLERGIES Penicillin - hives Pravastatin - body aches Sulfa - hives Azithromycin - diarrhea, GI * Astro LABS: Laboratory Tests 07/14/23 11:49 WBC 7.5 Hgb 16.2 H Hct 46.8 MCV 90.9 MCH 31.5 Plt Count 319 Estimated GFR > 60 Total Bilirubin 0.3 AST 26 ALT 48 H Alkaline Phosphatase 58 TSH 2.75 TODAY'S VISIT She has had trouble for about 20 years. Recently she started last Mon and with liquid diarrhea, nausea, fecal incontinence overnight. She is afraid to pass gas. She was running a low grade fever of about 100 F on and off. This seems to have resolved. She took COVID tests that were negative. In general, she goes from CIC to diarrhea. She does not use any laxative or diarrhea meds. she uses zofran and compazine supps for nausea at times. She sees an integrated medicine provider who did some allergy testing but she does not yet know the results. She had 2 scopes that were normal except for hemorrhoids. She uses Gas x. She has never tried fiber. She was recently hospitalized at [facility] for this. [place] moved [place] here [place]. Her dtr has similar sx, no other known GI problems in family. She has tried hyoscamine and maybe bentyl in the past with some relief. ROV 6 weeks. PFSH Medical History History of shingles Hyperlipidemia Surgical History H/O colonoscopy History of tubal ligation History of endometrial ablation History of cholecystectomy Family History (Updated 09/29/23 @ 09:23 by DALLAS Dumont) Mother Hypertension Hypercholesteremia Thyroid disorder Father Hypercholesteremia Hypertension Diabetes Cardiovascular disease Brother Hypercholesteremia Hypertension Asthma Thyroid disorder Maternal Grandfather Cancer, metastatic Social History Housing: House Alcohol intake: never Patient Tobacco Use Status: Former Tobacco user Cigarette Packs Per Day: 0.25 Years Smoked: 10 e-Cigarette/Vaping Use: Never Used Second Hand Smoke Exposure: No service: No Current occupational status: retired Current occupational exposures/hazards: No Cognitive needs: No Hearing needs: No Vision needs: Yes Review of Systems Const Denies fatigue, Denies fever(s), Denies night sweats, Denies poor appetite and Denies weight loss ENT Reports Normal hearing present, Denies dental pain, Denies dysphagia, Denies hearing loss, Denies mouth pain, Denies odynophagia, Denies throat swelling, Denies tongue swelling and Reports other (Dentition adequate) Card Reports no additional complaints Resp Reports no additional complaints GI Details: Denies abdominal pain, Denies melena, Denies bloating, Denies hematochezia, Denies constipation, Reports GI cramping, Denies dysphagia, Denies excessive flatus, Denies early satiety, Denies heartburn, Reports diarrhea, Reports nausea, Denies odynophagia, Reports vomiting and Denies hematemesis Skin/Breast Denies pruritus, Denies lesions, Denies rash and Denies jaundice Neuro Reports Normal hearing present and Denies Abnormal speech present Endo Denies fatigue Aller/Immun Denies throat swelling and Denies tongue swelling Physical Exam Vital Signs: Last Vital Signs Pulse 82 09/29/23 09:10 BP 143/86 H 09/29/23 09:10 BMI result Body Mass Index 30.2 Const General: cooperative, no acute distress, well developed and well groomed Nutritional Appearance: well nourished and obese Orientation/consciousness: oriented to person, oriented to place and oriented to time Limitations: No language barrier HEENT Head: Yes normocephalic and Yes atraumatic Eyes General: appearance normal, both eyes and all related structures Pupils: Equal, round and reactive pupils present Neck Neck: Yes normal visual inspection and Yes no lymphadenopathy Thyroid: Thyroid normal Resp Effort & Inspection: normal respiratory effort and able to speak in complete sentences Auscultation: clear to auscultation bilaterally Cardio Rate: regular rate Rhythm: regular rhythm Heart sounds: Normal, physiologic split S2 sound present Peripheral pulses: radial pulses present and posterior tibial pulses present GI Inspection: No distended, No Abdominal panniculus present and Yes obesity Palpation (GI): Soft to palpation, nontender, no guarding, not rigid and No hepatosplenomegaly present Percussion: Yes normal to percussion Auscultation: normal bowel sounds Rectal Exam - Female: deferred Skin General skin exam: no rashes or lesions noted, turgor normal, skin not dry, no jaundice, No spider nevi and no striae Rashes: no rashes Nails: normal Neuro General: oriented to person, oriented to place and oriented to time Cranial nerves: Yes Equal, round and reactive pupils present and Yes Normal hearing present Speech: No Abnormal speech present Extrem General: Yes normal to inspection, No clubbing, No cyanosis and No edema Psych Appearance: grossly normal and well kempt Mental Status: mental status grossly normal Speech and movement: Normal speech and movement present Affect: normal affect Attitude: cooperative Thought process: Normal thought process present and not confabulating Thought content: Normal thought content present Insight: Fair insight present (Psych) Judgement: Fair judgement present (Psych) Results Reviewed Results Reviewed: Laboratory Tests 07/14/23 11:49 WBC 7.5 Hgb 16.2 H Hct 46.8 MCV 90.9 MCH 31.5 Plt Count 319 Estimated GFR > 60 Total Bilirubin 0.3 AST 26 ALT 48 H Alkaline Phosphatase 58 TSH 2.75 Assessment & Plan Assessment & Plan (1) Diarrhea: Code(s): R19.7 - Diarrhea, unspecified Category: Medical Plan She has had trouble for about 20 years. Recently she started last Mon and with liquid diarrhea, nausea, fecal incontinence overnight. She is afraid to pass gas. She was running a low grade fever of about 100 F on and off. This seems to have resolved. She took COVID tests that were negative. In general, she goes from CIC to diarrhea. She does not use any laxative or diarrhea meds. she uses zofran and compazine supps for nausea at times. She sees an integrated medicine provider who did some allergy testing but she does not yet know the results. She had 2 scopes that were normal except for hemorrhoids. She uses Gas x. She has never tried fiber. She was recently hospitalized at [facility] for this. She moved [place] here from [place]. Her dtr has similar sx, no other known GI problems in family. She has tried hyoscamine and maybe bentyl in the past with some relief. ROV 6 weeks. Orders: Orders CDiff Gene PCR 10/02/23 R19.7 - Diarrhea, unspecified Transglutaminase IgA 09/29/23 R19.7 - Diarrhea, unspecified Calprotectin, Fecal 10/02/23 R19.7 - Diarrhea, unspecified Pancreatic Elastase-1 10/02/23 R19.7 - Diarrhea, unspecified C Reactive Protein 09/29/23 R19.7 - Diarrhea, unspecified GI Panel 10/02/23 R19.7 - Diarrhea, unspecified Transglutaminase Ab IgG 09/29/23 R19.7 - Diarrhea, unspecified Coding Level of Care Code New Pt Level 3 (32975) Diagnoses Diarrhea R19.7
[2023-09-29 09:10] VITALS: BP 143/86; PULSE 82; BMI 30.2
== END 2023-09-29 09:53 | disposition home or self-care (01) ==
PROVIDERS: PCP Nurse Practitioner Family; Referring Provider Nurse Practitioner Family; Visit Provider Nurse Practitioner
DX: R19.7 Diarrhea, unspecified (principal)
CPT/HCPCS: 99203

== ENCOUNTER 2023-09-30 06:05 | Outpatient (REF) | payer OTHER, SELFPAY ==
[2023-10-02 12:39] LABS: CDiff Gene PCR NEGATIVE (Negative)
[2023-10-02 14:03] LABS: Adenovirus F 40/41 Not Detected (Not Detect.); Astrovirus Not Detected (Not Detect.); Campylobacter Not Detected (Not Detect.); Cryptosporidium Not Detected (Not Detect.); Cyclospora cayetanensis Not Detected (Not Detect.); E. coli EAEC Not Detected (Not Detect.); E. coli EPEC Not Detected (Not Detect.); E. coli ETEC Not Detected (Not Detect.); E. coli STEC Not Detected (Not Detect.); Entamoeba histolytica Not Detected (Not Detect.); Giardia lamblia Not Detected (Not Detect.); Plesiomonas shigelloides Not Detected (Not Detect.); Rotavirus A Not Detected (Not Detect.); Salmonella Not Detected (Not Detect.); Sapovirus Not Detected (Not Detect.); Shigella sp./EIEC Not Detected (Not Detect.); Vibrio Not Detected (Not Detect.); Vibrio Cholerae Not Detected (Not Detect.); Yersinia enterocolitica Not Detected (Not Detect.)
[2023-10-09 20:23] LABS: Pancreatic Elastase-1 >500 mcg/g
[2023-10-10 23:08] LABS: Calprotectin, Fecal 12 mcg/g
== END 2023-09-30 06:06 | disposition home or self-care (01) ==
LOC: HO.LNP 06:05
PROVIDERS: Visit Provider Nurse Practitioner
DX: R19.7 Diarrhea, unspecified (principal)
CPT/HCPCS: 82656; 83993; 87493; 87507

== ENCOUNTER 2023-11-17 09:01 | Outpatient (AMB) | payer OTHER, SELFPAY ==
--- NOTE | 2023-11-17 09:18 | A.OFFVIS_ITS ---
Vital Signs 11/17/23 09:19 Height 5 ft 2.6 in Weight 169 lb 12.095 oz BMI 30.5 BP 135/85 Blood Pressure Location Rt brachial Position Sitting Pulse 71 Intake Visit Reasons: 6 week Intake Note: Wilian presents to in office visit today in 6 weeks follow up of IBS with diarrhea and lab results. CC: Patient states she is feeling a little bit better. She reports soft stools, and occasional nausea. Cardiothoracic Icu Rn Required: No Allergies amoxicillin [AMOXICILLIN] Allergy (Unknown, Verified 11/17/23 09:26) RASH Penicillins [PENICILLINS] Allergy (Unknown, Verified 11/17/23 09:26) RASH pravastatin Allergy (Unknown, Verified 11/17/23 09:26) Rash Sulfa (Sulfonamide Antibiotics) [SULFA(SULFONAMIDE ANTIBIOTICS)] Allergy (Unknown, Verified 11/17/23 09:26) RASH azithromycin Allergy (Verified 11/17/23 09:26) Stomach Upset HPI HPI 6 week: Details: Assessment & Plan (1) Diarrhea: Code(s): R19.7 - Diarrhea, unspecified Category: Medical Plan She has had trouble for about 20 years. Recently she started last Mon and with liquid diarrhea, nausea, fecal incontinence overnight. She is afraid to pass gas. She was running a low grade fever of about 100 F on and off. This seems to have resolved. She took COVID tests that were negative. In general, she goes from CIC to diarrhea. She does not use any laxative or diarrhea meds. she uses zofran and compazine supps for nausea at times. She sees an integrated medicine provider who did some allergy testing but she does not yet know the results. She had 2 scopes that were normal except for hemorrhoids. She uses Gas x. She has never tried fiber. She was recently hospitalized at [facility] for this. [place] here [place]. Her dtr has similar sx, no other known GI problems in family. She has tried hyoscamine and maybe bentyl in the past with some relief. ROV 6 weeks. Orders: Orders CDiff Gene PCR 10/02/23 R19.7 - Diarrhea, unspecified Transglutaminase IgA 09/29/23 R19.7 - Diarrhea, unspecified Calprotectin, Fecal 10/02/23 R19.7 - Diarrhea, unspecified Pancreatic Elastase-1 10/02/23 R19.7 - Diarrhea, unspecified C Reactive Protein 09/29/23 R19.7 - Diarrhea, unspecified GI Panel 10/02/23 R19.7 - Diarrhea, unspecified Transglutaminase Ab IgG 09/29/23 R19.7 - Diarrhea, unspecified LABS: Laboratory Tests 09/29/23 09/30/23 10:19 06:15 Stool Calprotectin 12 Stool Pancreat Elastase >500 Tiss Transglutamin IgG <1.0 Tiss Transglutamin IgA <1.0 C. difficile Tox B Gene NEGATIVE 10/02/23-[address]: ORDERED: GI Panel Test Result Flag Reference Campylobacter Not Detected Not Detect. P. shigelloides Not Detected Not Detect. Salmonella Not Detected Not Detect. Vibrio Not Detected Not Detect. Vibrio Cholerae Not Detected Not Detect. Y. enterocolit. Not Detected Not Detect. E. coli EAEC Not Detected Not Detect. E. coli EPEC Not Detected Not Detect. E. coli ETEC Not Detected Not Detect. E. coli STEC Not Detected Not Detect. E. coli O157 Not applicable Not Detect. E. coli containing the O157 antigen are a subset of Shiga-like toxin-producing E. coli (STEC). Shigella/EIEC Not Detected Not Detect. Cryptosporidium Not Detected Not Detect. Cyclospora Not Detected Not Detect. E. histolytica Not Detected Not Detect. Giardia lamblia Not Detected Not Detect. Adenovirus Not Detected Not Detect. Astrovirus Not Detected Not Detect. Norovirus See Comment Not Detect. Specimen sent to reference lab for further testing. Rotavirus A Not Detected Not Detect. Sapovirus Not Detected Not Detect. All results must be correlated with clinical findings. TODAY'S VISIT She is not doing better with the fiber and not peeing out of my butt. However, she is having incomplete evacuation. We discuss various possible pathologies including bowel continued irritability and the possibility of early rectocele/cystocele. We probably need to coordinate the ?squeeze? are motility of the bowel but we need to do this cautiously since most bowel motility agents are also laxatives. I think she should probably continue the fiber and try a very small dose of senna as it is fairly mild. She can do this by purchasing a pill and cutting it in half and doing it may be a couple of times a week or even trying something like smooth move tea very weakly bruit. She went to her integrative medicine provider and was told she had a couple of different types of yeast in her gut and that her iodine was very low. She also has very low estrogen and progesterone. The she was told to eat salt with iodine which sounds like a good idea but she has a severe family history of hypertension so I think an iodine supplement would be a better pathway. We discuss all of the results and thankfully there is no infection or severe pathology underlying the bowel irritability so likely dysfunctional. I educate her what this means basically the bowels responding to a variety of internal and external milieu that are not pathologic but nevertheless difficult to define. We are going to try this approach and return office visit in 8 weeks [facility] Medical History History of shingles Hyperlipidemia Surgical History H/O colonoscopy History of tubal ligation History of endometrial ablation History of cholecystectomy Family History Mother Hypertension Hypercholesteremia Thyroid disorder Father Hypercholesteremia Hypertension Diabetes Cardiovascular disease Brother Hypercholesteremia Hypertension Asthma Thyroid disorder Maternal Grandfather Cancer, metastatic Social History Housing: House Alcohol intake: never Patient Tobacco Use Status: Former Tobacco user Cigarette Packs Per Day: 0.25 Years Smoked: 10 e-Cigarette/Vaping Use: Never Used Second Hand Smoke Exposure: No service: No Current occupational status: retired Current occupational exposures/hazards: No Cognitive needs: No Hearing needs: No Vision needs: Yes Review of Systems Const Reports fatigue, Denies fever(s), Denies night sweats, Denies poor appetite and Denies weight loss ENT Details: glasses Reports Normal hearing present, Denies dental pain, Denies dysphagia, Denies hearing loss, Denies mouth pain, Denies odynophagia, Denies throat swelling, Denies tongue swelling and Reports other (Dentition adequate) Card Reports no additional complaints Resp Reports no additional complaints GI Details: Denies abdominal pain, Denies melena, Denies bloating, Denies hematochezia, Reports constipation, Reports GI cramping, Denies dysphagia, Denies excessive flatus, Denies early satiety, Denies heartburn, Reports diarrhea, Denies nausea, Denies odynophagia, Denies vomiting and Denies hematemesis Skin/Breast Denies pruritus, Denies lesions, Denies rash and Denies jaundice Neuro Reports Normal hearing present and Denies Abnormal speech present Endo Reports fatigue and Reports flushing Aller/Immun Denies throat swelling and Denies tongue swelling Physical Exam Vital Signs: Last Vital Signs Pulse 71 11/17/23 09:19 BP 135/85 11/17/23 09:19 BMI result Body Mass Index 30.5 Const General: cooperative, no acute distress, well developed and well groomed Nutritional Appearance: well nourished and obese Orientation/consciousness: oriented to person, oriented to place and oriented to time Limitations: No language barrier HEENT Head: Yes normocephalic and Yes atraumatic Eyes General: appearance normal, both eyes and all related structures Pupils: Equal, round and reactive pupils present Neck Neck: Yes normal visual inspection and Yes no lymphadenopathy Thyroid: Thyroid normal Resp Effort & Inspection: normal respiratory effort and able to speak in complete sentences Auscultation: clear to auscultation bilaterally Cardio Rate: regular rate Rhythm: regular rhythm Heart sounds: Normal, physiologic split S2 sound present Peripheral pulses: radial pulses present and posterior tibial pulses present GI Inspection: No distended, No Abdominal panniculus present and Yes obesity Palpation (GI): Soft to palpation, nontender, no guarding, not rigid and No hepatosplenomegaly present Percussion: Yes normal to percussion Auscultation: normal bowel sounds Rectal Exam - Female: deferred Skin General skin exam: no rashes or lesions noted, turgor normal, skin not dry, no jaundice, No spider nevi and no striae Rashes: no rashes Nails: normal Neuro General: oriented to person, oriented to place and oriented to time Cranial nerves: Yes Equal, round and reactive pupils present and Yes Normal hearing present Speech: No Abnormal speech present Extrem General: Yes normal to inspection, No clubbing, No cyanosis and No edema Psych Appearance: grossly normal and well kempt Mental Status: mental status grossly normal Speech and movement: Normal speech and movement present Affect: normal affect Attitude: cooperative Thought process: Normal thought process present and not confabulating Thought content: Normal thought content present Insight: Fair insight present (Psych) Judgement: Fair judgement present (Psych) Assessment & Plan Assessment & Plan (1) Post-cholecystectomy syndrome: Code(s): K91.5 - Postcholecystectomy syndrome Category: Medical Plan She is not doing better with the fiber and not peeing out of my butt. However, she is having incomplete evacuation. We discuss various possible pathologies including bowel continued irritability and the possibility of early rectocele/cystocele. We probably need to coordinate the ?squeeze? are motility of the bowel but we need to do this cautiously since most bowel motility agents are also laxatives. I think she should probably continue the fiber and try a very small dose of senna as it is fairly mild. She can do this by purchasing a pill and cutting it in half and doing it may be a couple of times a week or even trying something like smooth move tea very weakly bruit. She went to her integrative medicine provider and was told she had a couple of different types of yeast in her gut and that her iodine was very low. She also has very low estrogen and progesterone. The she was told to eat salt with iodine which sounds like a good idea but she has a severe family history of hype rtension so I think an iodine supplement would be a better pathway. We discuss all of the results and thankfully there is no infection or severe pathology underlying the bowel irritability so likely dysfunctional. I educate her what this means basically the bowels responding to a variety of internal and external milieu that are not pathologic but nevertheless difficult to define. We are going to try this approach and return office visit in 8 weeks Coding Level of Care Code Est Pt Level 3 (46001) Diagnoses Post-cholecystectomy syndrome K91.5
[2023-11-17 09:19] VITALS: BP 135/85; PULSE 71; BMI 30.5
== END 2023-11-17 09:57 | disposition home or self-care (01) ==
PROVIDERS: PCP Nurse Practitioner Family; Visit Provider Nurse Practitioner
DX: K91.5 Postcholecystectomy syndrome (principal)
CPT/HCPCS: 99213

== ENCOUNTER → 2023-11-17 09:01 | Outpatient (BNVA) | payer OTHER, SELFPAY | PROVIDERS: PCP Nurse Practitioner Family; Visit Provider Nurse Practitioner | DX: K91.5 Postcholecystectomy syndrome (principal) | CPT/HCPCS: 99212 ==

== ENCOUNTER 2023-11-20 10:50 | Outpatient (AMB) | payer OTHER, SELFPAY ==
--- NOTE | 2023-11-20 11:04 | MHC.PC.OV ---
Vital Signs 11/20/23 11:15 Height 5 ft 2.6 in Weight 169 lb 4 oz BMI 30.4 BP 124/84 Blood Pressure Location Rt brachial Position Sitting Respiration 14 Pulse 78 Pulse Source Pulse Oximeter Temp 98.6 F Temp Source Oral Pulse Oximetry (%) 95 Oxygen Delivery Method Room Air Intake Visit Reasons: FLOORS BUFFER, requests physical Intake Note: New patient visit Allergies amoxicillin [AMOXICILLIN] Allergy (Unknown, Verified 11/20/23 11:32) RASH Penicillins [PENICILLINS] Allergy (Unknown, Verified 11/20/23 11:32) RASH pravastatin Allergy (Unknown, Verified 11/20/23 11:32) Rash Sulfa (Sulfonamide Antibiotics) [SULFA(SULFONAMIDE ANTIBIOTICS)] Allergy (Unknown, Verified 11/20/23 11:32) RASH azithromycin Allergy (Verified 11/20/23 11:32) Stomach Upset Medication List - Last Reconciled 11/20/23 by Ondina Sousa, FACILITIES AND GROUNDS DIRECTOR- albuterol sulfate 90 mcg/actuation 2 inhalations inhalation Q6H PRN berberine chloride mg PO cetirizine 10 mg PO DAILY PRN cyclosporine 0.05% drps ophthalmic (eye) epinephrine (EpiPen) 0.3 mg IM Q4H PRN ergocalciferol (vitamin D2) 1,250 mcg PO QWEEK estradiol 1 patch transdermal 2XW ezetimibe 10 mg PO DAILY fluticasone propionate 50 mcg/actuation (Flonase Allergy Relief) 2 sprays intranasal DAILY lorazepam 1 mg PO DAILY PRN naproxen 225 mg PO BID PRN nystatin 1,000,000 units PO BID olopatadine 0.7% (Pataday Once Daily Relief) 1 drp ophthalmic (eye) DAILY ondansetron 4 mg PO Q8H pantoprazole 40 mg PO BID [Pregnenolone 30 mg PO DAILY] [probiotic Select PO] progesterone micronized 100 mg PO QAM wheat dextrin (Benefiber Sugar Free (dextrin)) 1.5 grams PO TID Tobacco use date assessed: 11/20/23 Dental Screening Dental Screen Date: 11/20/23 Did you have a dental visit in the last 12 months?: No Did you have a dental problem in the last 6 months where you did not have access to dental care?: No Was dental information given to patient?: Patient has dentist HPI HPI Comments History of Present Illness Details 63 y/o F with HLD, PADMAJA, GERD, IBS, seasonal allergies, eczema Health Maintenance: Colon reports UTD DEXA reports UTD Mammo reports UTD Pap states WNL, cleared for q 5 year screen Vaccines: [place]V done [place] few years [place] [facility] [place] states UTD on Tdap; UTD on flu shot. Specialists: Optho Dr Hinson on 08/31/23 [facility] 08/24/23 GI July Reich Here today for routine f/u. Derm - has not been able to get appt yet due to referral issues. Will have the June referral printed today. Optho - had appt 08/2023. Reports some changes noted; has f/u scheduled. Wears glasses Had food and allergy testing; stool sample + yeast x 2, elevated testosterone, has other lab abnormality. Advised to DC amitryptyline. Now on supplements to include iodine supplement, and a patch to help w/ the lab abnormalities. Next appt February 2024 w integrative medicine. Advised by GI to take benefiber. Having liquid bowel movements. Fiber has helped. Also using sennakot 1/2 tab a few days per week. Just started this. Reports improvement in chronic GI Sx. Labs from 07/18/2023 show a normal CBC, normal CMP, normal iron studies mild elevation in her ALT of 48, elevated LDL 179, normal vitamin B12, normal vitamin-D, normal TSH, normal urine microalbumin creatinine ratio Exam: Awake alert NAD Scleras nonicteric bilat MMM RRR LS CTAB Abd soft, normoactive BS, nontender No edema BLE Mood and affect appropriate Plan repeat fasting labs 1 year to look at lipids. ? elgible for new medication cont zetia and all other meds cont f/u with specialists. RTO July for CPE, fasting labs 1 week before, sooner as needed please send me a portal message if you need a mammo order This note is constructed using voice recognition software. While every effort has been made to ensure accuracy in e commerce marketing manager, still errors may have been included Sometimes, these errors may affect the content or meaning of the given sentence . Total time spent caring for the patient today was 30 minutes. This includes time spent before the visit reviewing the chart, time spent during the visit, and time spent after the visit on documentation [facility] Medical History (Updated 11/20/23 @ 13:01 by Ondina Sousa, [facility]) History of shingles Hyperlipidemia Surgical History H/O colonoscopy History of tubal ligation History of endometrial ablation History of cholecystectomy Family History (Updated 11/20/23 @ 12:45 by Daniella Loja CMA) Mother HTN (hypertension) Hypercholesteremia Thyroid disorder Father Hypercholesteremia HTN (hypertension) Diabetes Cardiovascular disease Brother Hypercholesteremia HTN (hypertension) Asthma Thyroid disorder Maternal Grandfather Cancer, metastatic Social History (Updated 11/20/23 @ 11:14 by Daniella Loja CMA) Housing: House Alcohol intake: never Patient Tobacco Use Status: Former Tobacco user Cigarette Packs Per Day: 0.25 Years Smoked: 10 Packs Per Year: 3 e-Cigarette/Vaping Use: Never Used Second Hand Smoke Exposure: No Use of substances other than those prescribed or required for medical reasons: No service: No Current occupational status: retired Current occupational exposures/hazards: No Cognitive needs: No Hearing needs: No Vision needs: Yes Questionnaire PHQ-9 Over the last 2 weeks, how often have you been bothered by any of the following problems? 1. Little interest or pleasure in doing things: nearly every day 2. Feeling down, depressed, or hopeless: not at all 3. Trouble falling or staying asleep, or sleeping too much: nearly every day 4. Feeling tired or having little energy: nearly every day 5. Poor appetite or overeating: not at all 6. Feeling bad about yourself - or that you are a failure or have let yourself or your family down: not at all 7. Trouble concentrating on things, such as reading the newspaper or watching television: not at all 8. Moving or speaking so slowly that other people could have noticed. Or the opposite - being so fidgety or restless that you have been moving around a lot more than usual: not at all 9. Thoughts that you would be better off or of hurting yourself in some way: not at all Total score: 9 Depression Screening Interpretation: Positive Depression Screening Done: Yes 13673 - PHQ-9 Billing: Yes Source: Developed by Drs. Kennedy Chowdhury, Bianca B.Pedro Almaraz and colleagues, with an educational moraima from [employer]. Thrive Questionnaire Date Thrive assessed: 11/20/23 I am a: Patient What is your living situation today?: I have a steady place to live Within the past 12 months, did the food you bought not last and you didn't have the money to get more?: Never true Within the past 12 months, did you worry whether your food would run out before you got money to buy more?: Never true Do you have trouble paying for medicines?: No Do you have trouble getting transportation to medical appointments?: No Do you have trouble paying your heating and electricity bill?: No Do you have trouble taking care of your child, family member or friend?: No Do you have trouble with day-to-day activities such as bathing, preparing meals, shopping, managing finances, etc.?: No Are you currently unemployed and looking for a job?: No Are you interested in more education?: No Please select the resources that you would like help with: None Currently or been in a relationship where the following occur: No concerns reported THRIVE Score: 0 AUDIT C Alcohol Use Questionnaire (AUDIT-C) 1. How often do you have a drink containing alcohol?: Never 3. How often do you have six or more drinks on one occasion?: Never Total Score: 0 PADMAJA-7 AMB Questionnaire PADMAJA-7 Date PADMAJA - 7 assessed: 11/20/23 Feeling nervous, anxious, or on edge: 1 = Several days Not being able to stop or control worryin = Not at all Worrying too much about different things: 0 = Not at all Trouble relaxin = Not at all Being so restless that it is hard to sit still: 0 = Not at all Becoming easily annoyed or irritable: 1 = Several days Feeling afraid as if something awful might happen: 0 = Not at all Total PADMAJA-7 score (0-4 normal; 5-9 mild; 10-14 moderate; 15-21 severe): 2 Source: Developed by Drs. Kennedy Chowdhury, Pedro Vazquez and colleagues, with an educational moraima from [employer]. PADMAJA-7 Assessment Billing PADMAJA-7 Assessment Tool: PADMAJA-7 Assessment 21596 Physical exam (Primary Care) Vital Signs: Last Vital Signs Temp 98.6 F 11/20/23 11:15 Pulse 78 11/20/23 11:15 Resp 14 11/20/23 11:15 BP 124/84 11/20/23 11:15 Pulse Ox 95 11/20/23 11:15 Oxygen Delivery Method Room Air 11/20/23 11:15 BMI result Body Mass Index 30.4 Tobacco/Smoking Status: Tobacco use Status Tobacco use date assessed 11/20/23 11/20/23 11:13 Patient Tobacco Use Status Former Tobacco user 11/20/23 11:14 e-Cigarette/Vaping Use Never Used 11/20/23 11:14 PHQ-9: PHQ-9 Score PHQ-9: Total score 9 11/20/23 12:44 Depression Screening Interpretation: Positive Thrive Assessment: Date of Thrive Assessment Date Thrive assessed 11/20/23 11/20/23 12:44 Currently or been in a relationship where the following occur: No concerns reported Assessment and Plan Assessment & Plan (1) Hyperlipidemia: Code(s): E78.5 - Hyperlipidemia, unspecified Qualifiers: Hyperlipidemia type: mixed hyperlipidemia Qualified Code(s): E78.2 - Mixed hyperlipidemia (2) Keratoconjunctivitis: Comment: ophthalmology Code(s): H16.209 - Unspecified keratoconjunctivitis, unspecified eye Qualifiers: Laterality: bilateral Qualified Code(s): H16.203 - Unspecified keratoconjunctivitis, bilateral (3) IBS (irritable bowel syndrome): Comment: Active w/ GI for further evaluation and treatment Code(s): K58.9 - Irritable bowel syndrome without diarrhea Qualifiers: Irritable bowel syndrome type: with both diarrhea and constipation Qualified Code(s): K58.2 - Mixed irritable bowel syndrome (4) Iodine deficiency: Comment: managed by [facility] Code(s): E61.8 - Deficiency of other specified nutrient elements (5) Yeast in stool: Comment: managed by integrative med Code(s): R19.5 - Other fecal abnormalities Orders: Orders Lipid Panel 07/16/24 E78.5 - Hyperlipidemia, unspecified Hemoglobin A1c 07/16/24 E78.5 - Hyperlipidemia, unspecified TSH reflex Free T4 07/16/24 E78.5 - Hyperlipidemia, unspecified Microalbumin, Random (w Creat) 07/16/24 E78.5 - Hyperlipidemia, unspecified Comprehensive [place]. Panel Fast 07/16/24 E78.5 - Hyperlipidemia, unspecified Patient Instructions: Plan repeat fasting labs 1 year to look at lipids. ? elgible for new medication cont zetia and all other meds cont f/u with specialists. RTO July for CPE, fasting labs 1 week before, sooner as needed please send me a portal message if you need a mammo order Coding Level of Care Code Est Pt Level 4 (96591) Diagnoses Mixed hyperlipidemia E78.2 Hyperlipidemia type: mixed hyperlipidemia Keratoconjunctivitis of both eyes H16.203 Laterality: bilateral Irritable bowel syndrome with both constipation and diarrhea K58.2 Irritable bowel syndrome type: with both diarrhea and constipation Iodine deficiency E61.8 Yeast in stool R19.5 Additional Codes PADMAJA-7 Assessment Billing - PADMAJA-7 Assessment Tool: PADMAJA-7 Assessment 95178 ([id number])
[2023-11-20 11:15] VITALS: BP 124/84; PULSE 78; RESP 14; TEMP 37; O2SAT 95; BMI 30.4
== END 2023-11-20 11:47 | disposition home or self-care (01) ==
PROVIDERS: PCP Nurse Practitioner Family; Visit Provider Nurse Practitioner Family
DX: E78.2 Mixed hyperlipidemia (principal); H16.203 Unspecified keratoconjunctivitis, bilateral; K58.2 Mixed irritable bowel syndrome; E61.8 Deficiency of other specified nutrient elements; R19.5 Other fecal abnormalities
CPT/HCPCS: 99214

== ENCOUNTER 2024-01-12 10:50 | Outpatient (AMB) | payer OTHER, SELFPAY ==
--- NOTE | 2024-01-12 10:51 | MHC.OFFVIS ---
Vital Signs 01/12/24 10:56 Height 5 ft 2.6 in Weight 169 lb 12.095 oz BMI 30.5 BP 135/68 Blood Pressure Location Lt brachial Position Sitting Pulse 68 Intake Visit Reasons: 8 week follow up Intake Note: Wilian returns to in office follow up of IBS. CC: Per patient she's had 2 IBS flare ups since last visit. She states that's a great improvement compare to before. Furniture Builder Required: No Allergies amoxicillin [AMOXICILLIN] Allergy (Unknown, Verified 01/12/24 11:05) RASH Penicillins [PENICILLINS] Allergy (Unknown, Verified 01/12/24 11:05) RASH pravastatin Allergy (Unknown, Verified 01/12/24 11:05) Rash Sulfa (Sulfonamide Antibiotics) [SULFA(SULFONAMIDE ANTIBIOTICS)] Allergy (Unknown, Verified 01/12/24 11:05) RASH azithromycin Allergy (Verified 01/12/24 11:05) Stomach Upset HPI HPI 8 week follow up: Details: Assessment & Plan (1) Post-cholecystectomy syndrome: Code(s): K91.5 - Postcholecystectomy syndrome Category: Medical Plan She is not doing better with the fiber and not peeing out of my butt. However, she is having incomplete evacuation. We discuss various possible pathologies including bowel continued irritability and the possibility of early rectocele/cystocele. We probably need to coordinate the ?squeeze? are motility of the bowel but we need to do this cautiously since most bowel motility agents are also laxatives. I think she should probably continue the fiber and try a very small dose of senna as it is fairly mild. She can do this by purchasing a pill and cutting it in half and doing it may be a couple of times a week or even trying something like smooth move tea very weakly bruit. She went to her integrative medicine provider and was told she had a couple of different types of yeast in her gut and that her iodine was very low. She also has very low estrogen and progesterone. The she was told to eat salt with iodine which sounds like a good idea but she has a severe family history of hypertension so I think an iodine supplement would be a better pathway. We discuss all of the results and thankfully there is no infection or severe pathology underlying the bowel irritability so likely dysfunctional. I educate her what this means basically the bowels responding to a variety of internal and external milieu that are not pathologic but nevertheless difficult to define. We are going to try this approach and return office visit in 8 weeks TODAY'S VISIT She has been using the fiber and doing very well! only had 2 attacks since I saw her and she has not needed to go to the hospital. She has not needed to use the senna. She continues on her pantoprazole 40 mg twice a day. she is quite happy with this. ROV 3 mos. [facility]LY [facility] Medical History History of shingles Hyperlipidemia Surgical History H/O colonoscopy History of tubal ligation History of endometrial ablation History of cholecystectomy Family History Mother HTN (hypertension) Hypercholesteremia Thyroid disorder Father Hypercholesteremia HTN (hypertension) Diabetes Cardiovascular disease Brother Hypercholesteremia HTN (hypertension) Asthma Thyroid disorder Maternal Grandfather Cancer, metastatic Social History Housing: House Alcohol intake: never Patient Tobacco Use Status: Former Tobacco user Cigarette Packs Per Day: 0.25 Years Smoked: 10 e-Cigarette/Vaping Use: Never Used Second Hand Smoke Exposure: No service: No Current occupational status: retired Current occupational exposures/hazards: No Cognitive needs: No Hearing needs: No Vision needs: Yes Review of Systems Const Denies fatigue, Denies fever(s), Denies night sweats, Denies poor appetite and Denies weight loss Eyes Details: glasses Reports requires corrective lenses ENT Reports Normal hearing present, Denies dental pain, Denies dysphagia, Denies hearing loss, Denies mouth pain, Denies odynophagia, Denies throat swelling, Denies tongue swelling and Reports other (Dentition adequate) Card Reports no additional complaints Resp Reports no additional complaints GI Details: Denies abdominal pain, Denies melena, Denies bloating, Denies hematochezia, Denies constipation, Reports GI cramping, Denies dysphagia, Denies excessive flatus, Denies early satiety, Reports heartburn, Reports diarrhea, Denies nausea, Denies odynophagia, Denies vomiting and Denies hematemesis Skin/Breast Denies pruritus, Denies lesions, Denies rash and Denies jaundice Neuro Reports Normal hearing present and Denies Abnormal speech present Endo Denies fatigue Aller/Immun Denies throat swelling and Denies tongue swelling Physical Exam Vital Signs: Last Vital Signs Pulse 01/12/24 10:56 BP 135/68 01/12/24 10:56 BMI result Body Mass Index 30.5 Const General: cooperative, no acute distress, well developed and well groomed Nutritional Appearance: well nourished and obese Orientation/consciousness: oriented to person, oriented to place and oriented to time Limitations: No language barrier and ambulation with cane HEENT Head: Yes normocephalic and Yes atraumatic Eyes General: appearance normal, both eyes and all related structures Pupils: Equal, round and reactive pupils present Neck Neck: Yes normal visual inspection and Yes no lymphadenopathy Thyroid: Thyroid normal Resp Effort & Inspection: normal respiratory effort and able to speak in complete sentences Auscultation: clear to auscultation bilaterally Cardio Rate: regular rate Rhythm: regular rhythm Heart sounds: Normal, physiologic split S2 sound present Peripheral pulses: radial pulses present and posterior tibial pulses present GI Inspection: No distended and No Abdominal panniculus present Palpation (GI): Soft to palpation, nontender, no guarding, not rigid and No hepatosplenomegaly present Percussion: Yes normal to percussion Auscultation: normal bowel sounds Rectal Exam - Female: deferred Skin General skin exam: no rashes or lesions noted, turgor normal, skin not dry, no jaundice, No spider nevi and no striae Rashes: no rashes Nails: normal Neuro General: oriented to person, oriented to place and oriented to time Cranial nerves: Yes Equal, round and reactive pupils present and Yes Normal hearing present Speech: No Abnormal speech present Extrem General: Yes normal to inspection, No clubbing, No cyanosis and No edema Psych Appearance: grossly normal and well kempt Mental Status: mental status grossly normal Speech and movement: Normal speech and movement present Affect: normal affect Attitude: cooperative Thought process: Normal thought process present and not confabulating Thought content: Normal thought content present Insight: Fair insight present (Psych) Judgement: Fair judgement present (Psych) Assessment & Plan Assessment & Plan (1) Post-cholecystectomy syndrome: Code(s): K91.5 - Postcholecystectomy syndrome Category: Medical Plan She has been using the fiber and doing very well! only had 2 attacks since I saw her and she has not needed to go to the hospital. She has not needed to use the senna. She continues on her pantoprazole 40 mg twice a day. she is quite happy with this. ROV 3 mos. Coding Level of Care Code Est Pt Level 3 (69294) Diagnoses Post-cholecystectomy syndrome K91.5
[2024-01-12 10:56] VITALS: BP 135/68; PULSE 68; BMI 30.5
== END 2024-01-12 12:11 | disposition home or self-care (01) ==
PROVIDERS: PCP Nurse Practitioner Family; Visit Provider Nurse Practitioner
DX: K91.5 Postcholecystectomy syndrome (principal)
CPT/HCPCS: 99213

== ENCOUNTER → 2024-01-12 10:50 | Outpatient (BNVA) | payer OTHER, SELFPAY | PROVIDERS: PCP Nurse Practitioner Family; Visit Provider Nurse Practitioner | DX: K58.9 Irritable bowel syndrome, unspecified (principal); K91.5 Postcholecystectomy syndrome | CPT/HCPCS: 99212 ==